=== PATIENT | male | born 1955 | race Caucasian/White ===

== ENCOUNTER → 2018-03-17 13:21 | Outpatient (CLI) | payer OTHER, SELFPAY ==
--- NOTE | 2018-03-17 13:30 | RAD_ITS ---
STUDY: X-RAY - RIGHT RADIUS AND ULNA REASON FOR EXAM: Male, 62 years old. Swelling. TECHNIQUE: 3 view(s) of the forearm. COMPARISON: None. FINDINGS: There is no demonstrated soft tissue swelling. Normal visualized radius. Normal visualized ulna. RAD/Forearm 2 Views IMPRESSION: Within normal limits x-ray examination of the radius and ulna. Electronically Signed: Stacia Mcqueen MD at 20:37 EDT Tel , Service support ,
== END ==
PROVIDERS: Family Provider Family Medicine; PCP Family Medicine; Visit Provider Family Medicine
DX: M79.631 Pain in right forearm (principal); M25.421 Effusion, right elbow
CPT/HCPCS: 73090

== ENCOUNTER 2019-12-15 10:43 | Emergency (ER) | payer OTHER, SELFPAY ==
[2019-12-15 10:44] VITALS: BP 144/81; PULSE 69; RESP 18; TEMP 36.5; O2SAT 98; BMI 33.0
--- NOTE | 2019-12-15 11:04 | EKG12_ITS ---
Test Reason : CP Blood Pressure : / mmHG Vent. Rate : 068 BPM Atrial Rate : 068 BPM P-R Int : 186 ms QRS Dur : 148 ms QT Int : 428 ms P-R-T Axes : 034 -10 100 degrees QTc Int : 455 ms Normal sinus rhythm Left bundle branch block Abnormal ECG Confirmed by JAVI PHILLIP, AURELIO ([id number]), commissioning editor ANA CARABALLO ([id number] on 12/17/2019 1:32:35 PM Referred By: JEAN Confirmed By:AURELIO CALDWELL MD
--- NOTE | 2019-12-15 11:04 | ED.DCSUM_ITS ---
- ER Visit Summary Date of Service: 12/15/19 Chief Complaint: Chest pain History of Present Illness: The patient is a 64 M who presents with chest pain and shortness of breath that began approximately 40 minutes prior to arrival. 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 Patient states this was a tightness across his chest. Patient states he had some shortness of breath with this. Patient also admits to some episodes of palpitations. Patient states he did break out into a sweat. Patient states his symptoms are improved with drinking water and with rest. Patient states his breathing was worse because he was wearing a mask. Patient denies any nausea or vomiting. Patient denies any lightheadedness. Patient denies any cough or fevers. Cardiac risk factors include hypertension and hypercholesterolemia. Patient states his symptoms are improving and he thinks he just overdid it at work. Physical Examination: Vital signs are stable. Patient is afebrile. Patient is in no acute distress. Oral mucosa is pink and moist. Neck is supple. Trachea is midline. There is no JVD noted. Heart was regular rate and rhythm. Lungs are clear and equal bilaterally. Abdomen is soft. Bowel sounds are normal. There is no tenderness. There is no rebound or guarding noted. Skin is warm dry. Cranial nerves II through XII are intact. There are no focal motor or sensory deficits noted. Extremities are intact. There is no calf tenderness or edema. Test Results: EKG shows normal sinus rhythm with a rate of 68. There is a left bundle branch block pattern noted. This is new compared to previous EKG dated 05/08/2012. CBC and basic metabolic profile were obtained and were essentially within normal limits. Troponin was normal. Since his symptoms began 40 minutes prior to arrival, a delta troponin was obtained and was normal. Portable chest x-ray was obtained. There is no acute cardiopulmonary process. Emergency Department Course and Treatment: Patient was given aspirin. Patient was ordered sublingual nitroglycerin but did not receive any because he was not having any chest pain at the time. Patient remained pain-free here in the [facility] department. Patient wants to go home. Patient was instructed to follow- up with his primary care physician in 3 to 5 days. Patient understood and was agreeable with the plan. All questions were answered. Disposition: Discharge home Impression: Chest pain of uncertain etiology This note was generated with Dragon dictation software. It may contain incorrect words, spelling, and punctuation that were not noted in review of the chart prior to signing ED Disposition - Plan for ED Patient: Disposition: Home or Assisted Living Diagnosis: Chest pain of uncertain etiology Instructions: CHEST PAIN, Uncertain Cause (Child) Referrals: Basil Arellano DO [Primary Care Provider] - 3-5 Days
[2019-12-15 11:15] LABS: Absolute Neutrophil Count 4.5 X10^3/uL (2.0-7.7); Basophil# 0.04 X10^3/uL; Basophil% 0.5 % (0-1); Eosinophil# 0.15 X10^3/uL; Eosinophils% 2.1 % (0-5); Hematocrit 45.7 % (40-54); Hemoglobin 15.6 g/dL (13.0-16.5); Mean Corp Hgb Conc 34.1 g/dL (32-36); Mean Corpuscular Hgb 31.3 pg (27.0-32.0); Mean Corpuscular Volume 91.8 fL (80-94); Mean Platelet Vol. 9.1 fl (6.2-12.0); Monocyte# 0.64 X10^3/uL; Monocyte% 8.8 % (0-10); NRBC Flagged by Analyzer 0 % (0-5); Neutrophil # 4.53 X10^3/uL (2.7-7.7); Neutrophil % 62.1 % (47-70); Platelet Count 404 K/mm3 (150-450); RBC Distribution Width CV 11.8 % (11.6-14.6); RBC Distribution Width SD 39.5 fl (35.1-43.9); Red Blood Count 4.98 M/mm3 (4.6-6.2); White Blood Count 7.3 K/mm3 (4.4-11.0)
--- NOTE | 2019-12-15 11:25 | RAD_ITS ---
STUDY: X-RAY CHEST REASON FOR EXAM: Male, 64 years old. Chest pain with exertion TECHNIQUE: Single AP portable view of the chest. COMPARISON: Comparison is made with prior examination of July 20, 2016. FINDINGS: EKG electrodes are seen. The lungs are clear and expanded. Scattered calcified granulomas. There is no demonstrated pleural abnormality. Normal size heart. Normal mediastinum and nestor. Normal visualized pulmonary arteries. There is atherosclerotic calcification of the aortic arch with tortuosity. There are degenerative changes of the visualized thoracic spine. Minimal dextroscoliosis. Normal visualized ribs, clavicles, and shoulders. There is no demonstrated abnormality of the visualized soft tissue structures of the upper abdomen. RAD/Chest 1 View (Portable) IMPRESSION: No acute abnormality is seen. Electronically Signed: Timi Lopez, at 12:18 EDT , Service support ,
[2019-12-15 11:30] LABS: Anion Gap 8 (5-15); BUN 19 mg/dL (7-18); BUN/Creat Ratio 21.9 RATIO (10-20); Calcium,Total 9.4 mg/dL (8.5-10.1); Chloride 105 mmol/L (98-107); Creatinine, Serum 0.87 mg/dL (0.70-1.30); EST Glomerular Filtration Rate 94 mL/min (>60); Est Glom Filt Rate - Afr Amer 113 mL/min (>60); Estimated Creatinine Clearance 90.16 ml/min; Glucose 173 mg/dL (74-106); Potassium 3.9 mmol/L (3.5-5.1); Sodium Level 141 mmol/L (136-145)
[2019-12-15] MEDS: Aspirin 81 MG TAB.CHEW 324 MG PO (11:52)
[2019-12-15 11:53] VITALS: BP 141/79; PULSE 78; RESP 14; O2SAT 98
[2019-12-15 12:00] VITALS: BP 141/65; PULSE 68; RESP 13; O2SAT 96
[2019-12-15 13:09] VITALS: BP 148/75; PULSE 65; RESP 16; O2SAT 99
[2019-12-15 14:00] VITALS: BP 147/81; PULSE 66; RESP 18; O2SAT 97
[2019-12-15 14:48] VITALS: BP 146/75; PULSE 70; RESP 18; TEMP 36.8; O2SAT 98
== END 2019-12-15 14:49 | disposition home or self-care (01) ==
PROVIDERS: Emergency Provider Emergency Medicine; PCP Family Medicine
DX: R07.9 Chest pain, unspecified (principal); I48.91 Unspecified atrial fibrillation; I10 Essential (primary) hypertension; E78.00 Pure hypercholesterolemia, unspecified; K21.9 Gastro-esophageal reflux disease without esophagitis; Z79.01 Long term (current) use of anticoagulants
CPT/HCPCS: 71045; 80048; 84484; 85025; 93005; 99285; A4216

== ENCOUNTER 2020-09-22 18:15 | Emergency (ER) | payer OTHER, SELFPAY ==
[2020-09-22 18:16] VITALS: BP 155/80; PULSE 76; RESP 16; TEMP 36.4; O2SAT 98; BMI 30.7
--- NOTE | 2020-09-22 18:39 | ED.VIS.GEN ---
History of Present Illness Chief Complaint: Back Narrative: Patient is a 65-year-old male with a past medical history of A. elsa on Eliquis, borderline diabetic, hypertension who presents to the emergency department for low back pain. It is on the left side mostly. It does not radiate. He does have a history of chronic back problems in the past. He denies any specific injury. No radiation down his legs or into his abdomen. Denies any urinary symptoms. Does have a history of prostate issues but denies any hematuria. No chest pain. He did get short of breath whenever the pain became significant but denies this now. It is exacerbated by certain movements. While at rest he states his symptoms are very well controlled. He did not try taking anything for it. Previous back surgery was only for lipoma removal. Past Medical History - Allergies and Home Meds Allergies/Adverse Reactions: Allergies atorvastatin calcium [From Lipitor] Adverse Reaction (Verified 09/22/20 18:18) Other pravastatin sodium [From Pravachol] Adverse Reaction (Verified 09/22/20 18:18) Other Primary Care Physician: Basil Arellano DO [Primary Care Provider] - 3-5 Days if not improving Prior records reviewed: Yes Smoking Status: Never smoker Review of Systems All systems negative except as indicated General: Denies: Chills, Fever, Sweats Eyes: Denies: Visual changes - bilaterally, Diplopia ENT: Denies: Rhinorrhea, Sore throat Cardiovascular: Denies: Chest pain, Palpitations Respiratory: Denies: Dyspnea, Cough, Dyspnea on exertion Gastrointestinal: Denies: Abdominal pain, Nausea, Vomiting Genitourinary: Denies: Dysuria, Hematuria, Frequency Musculoskeletal: Reports: Back pain. Denies: Neck pain, Extremity Pain Skin: Denies: Rash, Wounds Neurological: Denies: Headache, Weakness, Numbness Physical Exam Vital Signs/Narrative: Vital Signs Temp Pulse Resp BP Pulse Ox 09/22/20 18:16 97.5 F L 76 16 155/80 H 98 Inital Vital Signs reviewed: Yes General: Well nourished, Well developed, No Acute Distress Head: Normocephalic, Atraumatic Eyes: Perrl, EOMI ENT: Moist mucous membranes, No rhinorrhea Neck: Supple, Nontender Cardiovascular: Regular rate, Regular rhythm, No murmurs Respiratory: No distress, CTA bilaterally, Chest nontender Abdomen: Soft, Nontender, Nondistended Back: Normal Inspection, - - Mild tenderness to the left lumbar paraspinal musculature.. Negative for: Spinal tenderness Extremities: Nontender, No edema, - - 5 out of 5 muscle strength of lower extremities, neurovascularly intact. Skin: Normal color, No rash Neurological: Alert, Oriented x3, Normal Strength, Normal Sensation Psychological: Normal affect, Normal Mood Diagnostic/Tx/Re-eval - Medical Decision Making Patient presents to the ED for nontraumatic left low back pain. Upon arrival to the ED is mildly hypertensive otherwise normal vital signs. He is in no acute distress. His symptoms are actually very well controlled at this time. Benign physical exam. No red flag symptoms for acute surgical spinal emergency. This does not appear to be an aortic dissection as the symptoms are well controlled, neurovascular intact and symptoms are worse with movement. I do not believe he has a kidney stone at this time as it does not radiate around to the front and is worse with movement. He is agreeable to trialing symptomatic treatment at this time. We will give a dose of Toradol. We will write a prescription for Naprosyn which she is to take sparingly being on a blood thinner. He is to only take this as needed. Will also write a prescription for Flexeril to take as needed. He understands that this can make him tired and should not operate machinery while using it. States he does have the next 3 days off to rest. He can use heating pads as well. He is to follow-up with his PCP. Strict return precautions were discussed with him including any worsening pain, developing any systemic symptoms are reviewed. He understands and agreeable with plan. Discharged home in stable condition. All questions answered. ED Disposition - Plan for ED Patient: Disposition: Home or Assisted Living Diagnosis: Low back pain Instructions: ED Back Pain (Acute or Chronic) Prescriptions: cycloBENZAPRine HCl [Flexeril] 10 mg PO TID PRN 3 Days #9 tab PRN Reason: Muscle Spasm Transmission Status: Received by [facility] cycloBENZAPRine HCl [Flexeril] 10 mg PO TID PRN #9 tab PRN Reason: Muscle Spasm Prescription Printed Naproxen [Naprosyn] 500 mg PO BID PRN #14 tab PRN Reason: Pain/Inflammation Transmission Status: Received by [facility] Naproxen [Naprosyn] 500 mg PO BID PRN #14 tab PRN Reason: Pain/Inflammation Prescription Printed Referrals: Basil Arellano DO [Primary Care Provider] - 3-5 Days if not improving
[2020-09-22] MEDS: Ketorolac 30 MG/ML Syringe IM (18:44)
[2020-09-22 19:13] VITALS: RESP 17
== END 2020-09-22 19:13 | disposition home or self-care (01) ==
LOC: ED 18:46
PROVIDERS: Emergency Provider Emergency Medicine; PCP Family Medicine
DX: M54.5 Low back pain (principal); I48.91 Unspecified atrial fibrillation; I10 Essential (primary) hypertension; Z79.01 Long term (current) use of anticoagulants
CPT/HCPCS: 99282

== ENCOUNTER 2021-03-01 10:00 | Emergency (ER) | payer OTHER, SELFPAY ==
[2021-03-01 10:00] VITALS: BP 167/68; PULSE 70; RESP 16; TEMP 36.4; O2SAT 97; BMI 33.5
--- NOTE | 2021-03-01 10:05 | ED.RN ---
DR. MALDONADO INFORMED OF PT SX ON TRIAGE, REPORTS THAT LKW OVER 24 HOURS. NO STROKE ALERT AT THIS TIME.
--- NOTE | 2021-03-01 10:18 | CT_ITS ---
STUDY: CTA HEAD AND NECK WITH CONTRAST REASON FOR EXAM: Male, 65 years old. Decrease vision right eye. Blurred vision in the right eye since last night. 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 RADIATION DOSAGE (If Supplied By Facility): CTDIvol = ( 29.89 ) mGy, DLP = ( 1654.31 ) mGycm TECHNIQUE: CT angiography was performed with a multi-detector CT scanner. Data acquisition was obtained from the skull base through the vertex following intravenous administration of 100mL Isovue 370. MIP images were reconstructed from the axial data set. Post-processing of the angiographic images was performed, with multiplanar reformation and 3D reconstruction. Individualized dose optimization techniques were used for this CT. COMPARISON: No relevant priors. FINDINGS: Normal bilateral petrous carotid arteries. Normal right cavernous carotid artery with a normal supraclinoid bifurcation. Normal left cavernous carotid artery with a normal supraclinoid bifurcation. Normal right A1 segments of the anterior cerebral artery. Normal left A1 segments of the anterior cerebral artery. Normal intact anterior communicating artery (ACOM). Normal bilateral A2 segments of the anterior cerebral arteries. Normal right M1 and M2 segments of the middle cerebral arteries, with a normal M1 bifurcation. Normal left M1 and M2 segments of the middle cerebral arteries, with a normal M1 bifurcation. Normal right posterior communicating artery (PCOM). Normal left posterior communicating artery (PCOM). Normal bilateral vertebral arteries. Normal basilar artery with a normal basilar bifurcation. The visualized bilateral superior cerebellar (SCA) arteries are normal. Normal bilateral P1, P2 and visualized P3 segments of the posterior cerebral arteries. There is no demonstrated aneurysm of the false pass of [place]. There is no demonstrated abnormality of the visualized brain. There is a 1.1 cm x 0.7 cm hypodense nodule in the left lobe of the thyroid. AORTIC ARCH: There is atherosclerotic calcific plaque formation of the aortic arch and great vessels arising from the aortic arch, without a hemodynamically significant stenosis. There is a normal origin of the brachiocephalic, left common carotid, and left subclavian arteries. Small benign appearing mediastinal lymph nodes. RIGHT CAROTID ARTERIES: Normal right common carotid artery (CCA). Normal right common carotid bulb. Normal origin of the right internal carotid (ICA) artery without a hemodynamically significant stenosis. Normal visualized cervical portion of the right internal carotid artery. Normal origin of the right external carotid artery (ECA). LEFT CAROTID ARTERIES: Normal left common carotid artery (CCA). Normal left common carotid bulb. Normal origin of the left internal carotid (ICA) artery without a hemodynamically significant stenosis. Normal visualized cervical portion of the left internal carotid artery. Normal origin of the left external carotid artery (ECA). VERTEBRAL ARTERIES: Normal bilateral vertebral arteries. CT/CTA Head AND Neck W/ Contrast IMPRESSION: Normal CTA Head and neck with contrast. Electronically Signed: Timi Lopez MD at 11:48 EDT , Service support ,
--- NOTE | 2021-03-01 10:20 | EDS_ITS ---
HPI History of Present Illness Chief Complaint: Eye Problem Detail of Chief Complaint: Blurred vision and double vision to right eye Informant: patient Onset/Context/Timing Onset: Yesterday Narrative Narrative: Patient presents to the emergency department with decreased vision in the right eye that started yesterday evening when he woke up around 6 PM. Patient went to bed at 8 AM and was normal at that time. Patient states that years ago he had a central vein occlusion of the left eye and has very poor vision in left eye. He is currently on Eliquis for history of A. fib. He denies chest pain or shortness of breath. He denies headache. He denies falls or head injuries. Denies recent illness. Prior similar symptoms: No PFSH PFSH Medical History (Updated 03/01/21 @ 12:[address] Tarik Regalado DO) A-fib Enlarged prostate GERD (gastroesophageal reflux disease) Sleep apnea Home Medications apixaban 5 mg PO BID 12/15/19 [History Last Taken Unknown] fluticasone furoate 2 spray NARES DAILY PRN PRN 12/15/19 [History Last Taken Unknown] metoprolol succinate 25 mg PO BID 12/15/19 [History Last Taken Unknown] omeprazole 20 mg PO DAILY 12/15/19 [History Last Taken Unknown] Allergy/AdvReac Type Severity Reaction Status Date / Time atorvastatin calcium AdvReac Other Verified 03/01/21 10:00 [From Lipitor] pravastatin sodium AdvReac Other Verified 03/01/21 10:00 [From Pravachol] Surgical History (Updated 03/01/21 @ 10:51 by Irlanda Marti) History of hernia repair History of repair of right hip joint Social History Smoking Status: Former smoker ROS ROS ED Constitutional Constitutional ED: Reports systems reviewed and no addt'l complaints, except as documented; Denies body ache(s), change in weight or chills Eyes Eyes: Reports blurry vision right, change in vision right and diplopia ENT ENT ED: Reports none; Denies ear pain, lip swelling, loss taste/smell, neck pain, otalgia or sore throat Cardiovascular Cardiovascular: Reports none; Denies abdominal pain, chest pain with activity, leg edema, lightheadedness, palpitations, rapid heart rate or syncope Respiratory/Chest Respiratory/Chest: Reports none; Denies change in mental status, dry cough, dy spnea, hemoptysis, shortness of breath at rest or shortness of breath with exertion Gastrointestinal Gastrointestinal: Reports none; Denies abdominal pain, change in stool character, diarrhea, hematemesis, hematochezia, melena, rectal bleeding or vomiting Genitourinary Genitourinary ED: Reports none; Denies abdominal discomfort, anuria, dysuria, genital pain or polyuria Musculoskeletal Musculoskeletal: Reports none; Denies arthralgias, back pain, difficulty walking, extremity pain, muscle weakness or myalgias Integumentary Reports none; Denies abscess or rash Neurologic Neurologic: Reports none; Denies abnormal gait, confusion, focal weakness, frequent falls, headache(s), loss of vision, numbness, paresthesias, radicular pain, vertigo or weakness Psychiatric Psychiatric: Reports systems reviewed and no addt'l complaints, except as documented and none; Denies behavioral changes, confusion, difficulty concentrating, hallucinations, suicidal ideation, tactile hallucinations or visual hallucinations Endocrine Endocrinology: Denies none, cold intolerance, excessive sweating, fatigue or heat intolerance Hematologic/Lymphatic Hematologic/Lymphatic: Reports none; Denies anemia, easy bleeding or easy bruising Allergic/Immunologic Allergic/Immunologic ED: Denies as per HPI, none, lip swelling, mouth swelling, throat swelling, tongue swelling or hives EXAM Physical Exam Const Vital Signs: 03/01/21 10:00 Temperature 97.6 F L Temperature Source Temporal Pulse Rate 70 Respiratory Rate 16 Blood Pressure 167/68 H Blood Pressure Mean 101 Pulse Ox 97 Oxygen Delivery Method Room Air Positive well nourished and well developed General Appearance ED: well developed and NAD HEENT Reports TM's clear and moist mucous membranes normocephalic and atraumatic; Negative for trauma or tenderness Tympanic Membrane ED: Yes TM's clear Eyes PERRL and EOMs intact bilaterally General Eye ED: Negative for pale conjunctiva or scleral icterus Direct Ophthalmoscopy: normal light reflex, anterior chamber normal and other Other Detail: Exam difficult in the department. I do not see significant retinal hemorrhages. Neck no lymphadenopathy, supple and no JVD General: Negative for tenderness Chest Wall inspection of chest normal and palpation of chest normal Chest: Negative for tenderness Resp normal respiratory effort and clear to auscultation bilaterally Effort and Inspection: Negative for respiratory distress or pain with movement Auscultation: Negative for rhonchi, wheezes or diminished lung sounds Cardio regular rate, regular rhythm, S1 normal heart sound, S2 normal heart sound and no murmurs Peripheral Pulses: pulses 2+ throughout GI normal to inspection, nondistended, normoactive bowel sounds, soft to palpation, non-tender, non-distended and no masses Back/Spine no CVA tenderness and no thoracic nor lumbar tenderness Extremity normal to inspection General Extremety ED: Negative for edema General Extremity: Negative for edema Neuro oriented x3, CN's II-XII intact bilaterally, no sensory deficits noted and gait normal Sensorium / Orientation: awake, alert, oriented to person, oriented to place and oriented to time Motor Exam: strength 5/5 throughout and strength abnormal Psych mental status grossly normal Skin no rashes or lesions noted and no wounds MDM MDM MDM Narrative Medical decision making narrative: CTA of head and neck unremarkable. Lab work was unremarkable. I discussed case with ophthalmology on-call Dr. Quiñonez who would be happy to see patient tomorrow. 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 Patient will attempt to contact his harvesting supervisor to be seen tomorrow if not he can follow-up with Dr. Quiñonez here locally. Dr. Quiñonez did not feel like there was emergent need to be evaluated today. Lab Data Attestation: I reviewed the patient's lab results. Discharge Plan Triage Chief Complaint: Eye Problem ED Provider: Tarik Regalado Dx/Rx/DC Orders Clinical Impression: Blurred vision Instructions: ED Blurred Vision Prescriptions: No Action omeprazole 20 MG capsule,delayed release(DR/EC) 20 mg PO DAILY RF: 0 metoprolol succinate 25 MG tablet extended release 24 hr 25 mg PO BID RF: 0 fluticasone furoate 5.9 ML spray,suspension 2 spray NARES DAILY PRN PRN (Reason: Congestion) RF: 0 apixaban 5 MG tablet 5 mg PO BID RF: 0 Primary Care Provider: Basil Arellano Referrals: Basil Arellano DO [Primary Care Provider] - Lianet Quiñonez MD [STAFF PHYSICIAN] - 1 Day Disposition Disposition: Home, self care
[2021-03-01 10:46] VITALS: RESP 17
[2021-03-01 11:01] LABS: Absolute Lymphocyte Count 2.85 X10^3/uL (0.83-4.51); Absolute Neutrophil Count 5.4 X10^3/uL (2.0-7.7); Basophil# 0.05 X10^3/uL; Basophil% 0.5 % (0-1); Eosinophil# 0.24 X10^3/uL; Eosinophils% 2.5 % (0-5); Hematocrit 44.2 % (40-54); Hemoglobin 15.4 g/dL (13.0-16.5); Lymphocyte # 2.85 X10^3/ul (0.83-4.51); Lymphocyte % 29.8 % (19-41); Mean Corp Hgb Conc 34.8 g/dL (32-36); Mean Corpuscular Hgb 31.6 pg (27.0-32.0); Mean Corpuscular Volume 90.6 fL (80-94); Mean Platelet Vol. 9.2 fl (6.2-12.0); Monocyte# 0.96 X10^3/uL; NRBC Flagged by Analyzer 0 % (0-5); Neutrophil # 5.42 X10^3/uL (2.7-7.7); Neutrophil % 56.7 % (47-70); Platelet Count 361 K/mm3 (150-450); RBC Distribution Width CV 11.9 % (11.6-14.6); RBC Distribution Width SD 39.5 fl (35.1-43.9); Red Blood Count 4.88 M/mm3 (4.6-6.2); White Blood Count 9.6 K/mm3 (4.4-11.0)
[2021-03-01 11:07] VITALS: BP 169/91; PULSE 72; RESP 16; O2SAT 94
[2021-03-01 11:13] LABS: Anion Gap 7 (5-15); BUN 19 mg/dL (7-18); BUN/Creat Ratio 24.5 RATIO (10-20); Calcium,Total 9.1 mg/dL (8.5-10.1); Chloride 107 mmol/L (98-107); Creatinine, Serum 0.78 mg/dL (0.70-1.30); EST Glomerular Filtration Rate 106 mL/min (>60); Est Glom Filt Rate - Afr Amer 128 mL/min (>60); Estimated Creatinine Clearance 75.03 ml/min; Glucose 112 mg/dL (74-106); Potassium 3.6 mmol/L (3.5-5.1); Sodium Level 140 mmol/L (136-145)
[2021-03-01 12:00] VITALS: BP 168/79; PULSE 71; RESP 17; O2SAT 97
[2021-03-01 13:35] VITALS: BP 158/74; PULSE 78; RESP 16; O2SAT 98
== END 2021-03-01 13:35 | disposition home or self-care (01) ==
PROVIDERS: Emergency Provider Emergency Medicine; PCP Family Medicine
DX: H53.8 Other visual disturbances (principal); K21.9 Gastro-esophageal reflux disease without esophagitis; G47.30 Sleep apnea, unspecified; I48.91 Unspecified atrial fibrillation; Z79.899 Other long term (current) drug therapy; Z87.891 Personal history of nicotine dependence
CPT/HCPCS: 70496; 70498; 80048; 85025; 99284; Q9967; A4216

== ENCOUNTER 2022-06-21 05:50 | Emergency (ER) | payer OTHER, SELFPAY ==
[2022-06-21 05:51] VITALS: BP 158/73; PULSE 68; RESP 18; TEMP 35.8; O2SAT 98; BMI 34.2
--- NOTE | 2022-06-21 06:01 | RAD_ITS ---
STUDY: X-RAY CHEST REASON FOR EXAM: Male, 67 years old. Shortness of breath TECHNIQUE: PA and lateral views of the chest. COMPARISON: 12/15/2019 FINDINGS: The lungs are clear and expanded. There is no demonstrated pleural abnormality. Normal size heart. Normal mediastinum and nestor. Normal visualized pulmonary arteries. Normal visualized aortic arch and descending thoracic aorta. There is no demonstrated abnormality of the visualized soft tissue structures of the upper abdomen. RAD/Chest PA and Lateral IMPRESSION: No acute abnormal cardiopulmonary finding. Electronically Signed: Enrike Cortez MD at 6:59 EDT ,
--- NOTE | 2022-06-21 06:01 | EKG12_ITS ---
Test Reason : Blood Pressure : / mmHG Vent. Rate : 061 BPM Atrial Rate : 061 BPM P-R Int : 198 ms QRS Dur : 154 ms QT Int : 454 ms P-R-T Axes : 036 002 110 degrees QTc Int : 457 ms Normal sinus rhythm Left bundle branch block Abnormal ECG Confirmed by JAVI PHILLIP, AURELIO ([id number]), desk editor VICKY JARAMILLO ([id number]) on 06/22/2022 10:10:25 AM Referred By: DOMONIQUE Confirmed By:AURELIO CALDWELL MD
--- NOTE | 2022-06-21 06:02 | ED.VIS.DYS ---
HPI History of Present Illness Chief Complaint: Shortness of Breath Informant: patient Onset/Context/Timing Onset: Weeks (1) Context: gradual and onset Timing: Continuous Quality: Positive for - (Feels like I cannot catch my breath) Current Severity: Mild Maximum Severity: Moderate Worsened by: Exertion (And light activities) and - (Bending over) Relieved by: Rest Associated Symptoms Negative for cough Chest Pain: Positive for None Narrative Narrative: Patient states she has felt dyspneic for the past week. Seems to be worse with bending over and with light activities. No orthopnea. No chest pain. No cough or fevers/chills. Today he was at work, and with light activity/walking, he felt near syncopal multiple times. He states if he stops and focused on his breathing it took a couple of deep breaths, that would keep me from passing out. This is the first day he had that happen. He was feeling some occasional skipping palpitations with that, but no palpitations otherwise. He states he has a history of paroxysmal atrial fibrillation and would feel whenever he would go into it, and has not noticed that recently. He is on Xarelto, switched from Eliquis 1 or 2 months ago. He has been compliant with his medication. No other recent medication changes. No other known heart problems. No recent long travel, leg pain or swelling, prior DVT or PE, recent hospitalization or surgery. [facility] Medical History A-fib Enlarged prostate GERD (gastroesophageal reflux disease) Hyperlipidemia Hypertension Sleep apnea Home Medications fluticasone furoate 27.5 mcg/actuation nasal spray,suspension 2 spray NARES DAILY PRN PRN Congestion 12/15/19 [History Last Taken Unknown] metoprolol succinate 25 mg tablet,extended release 24 hr 25 mg PO BID 12/15/19 [History Last Taken Unknown] omeprazole 20 mg capsule,delayed release 20 mg PO DAILY 12/15/19 [History Last Taken Unknown] rivaroxaban 20 mg tablet (Xarelto) 20 mg PO DAILY 03/20/22 [History Last Taken Unknown] rosuvastatin 5 mg tablet 5 mg PO DAILY 03/20/22 [History Last Taken Unknown] silodosin 4 mg capsule 4 mg PO DAILY 03/20/22 [History Last Taken Unknown] albuterol sulfate 90 mcg/actuation aerosol inhaler (Ventolin HFA) 1 - 2 puff inhalation Q4H PRN PRN Wheezing ##1 06/21/22 [Rx Last Taken Unknown] prednisone 20 mg tablet 40 mg PO DAILY #10 TABLETS 06/21/22 [Rx Last Taken Unknown] Allergy/AdvReac Type Severity Reaction Status Date / Time atorvastatin calcium AdvReac Other Verified 06/21/22 05:54 [From Lipitor] pravastatin sodium AdvReac Other Verified 06/21/22 05:54 [From Pravachol] Family History (Updated 03/20/22 @ 16:05 by Yudelka Castillo) Other Arthritis Cancer Diabetes Surgical History History of hernia repair History of repair of right hip joint Social History Smoking Status: Former smoker alcohol intake: never ROS ROS ED Constitutional Constitutional ED: Denies chills or fever(s) Eyes Eyes: Denies change in vision or diplopia ENT ENT ED: Denies rhinorrhea or sore throat Cardiovascular Cardiovascular: Reports palpitations; Denies chest pain, leg edema, orthopnea or racing heartbeat Respiratory/Chest Respiratory/Chest: Reports dyspnea; Denies cough or orthopnea Gastrointestinal Gastrointestinal: Reports other Details: Early satiety recently ; Denies abdominal pain, diarrhea, nausea or vomiting Genitourinary Genitourinary ED: Denies dysuria or hematuria Musculoskeletal Musculoskeletal: Denies back pain or neck pain Integumentary Denies abscess or rash Neurologic Neurologic: Denies headache(s), paresthesias or weakness Psychiatric Psychiatric: Denies anxiety or suicidal thoughts EXAM Physical Exam Const Vital Signs: 06/21/22 05:51 06/21/22 06:00 06/21/22 06:15 Temperature 96.5 F L Temperature Source Temporal Pulse Rate 68 65 Pulse Rate [Lying] Pulse Rate [Sitting (for 1 minute prior to obtaining)] Pulse Rate [Standing (for 1 minute prior to obtaining)] Respiratory Rate 18 17 Respiratory Effort Normal Respiratory Pattern Normal Blood Pressure 158/73 H Blood Pressure [Lying] Blood Pressure [Sitting (for 1 minute prior to obtaining)] Blood Pressure [Standing (for 1 minute prior to obtaining)] Blood Pressure Mean 101 Blood Pressure Mean [Lying] Blood Pressure Mean [Sitting (for 1 minute prior to obtaining)] Blood Pressure Mean [Standing (for 1 minute prior to obtaining)] Pulse Ox 98 Oxygen Delivery Method Room Air 06/21/22 07:03 Temperature Temperature Source Pulse Rate Pulse Rate [Lying] 65 Pulse Rate [Sitting (for 1 minute prior to obtaining)] 64 Pulse Rate [Standing (for 1 minute prior to obtaining)] 68 Respiratory Rate Respiratory Effort Respiratory Pattern Blood Pressure Blood Pressure [Lying] 138/75 H Blood Pressure [Sitting (for 1 minute prior to obtaining)] 147/73 H Blood Pressure [Standing (for 1 minute prior to obtaining)] 196/82 H Blood Pressure Mean Blood Pressure Mean [Lying] 96 Blood Pressure Mean [Sitting (for 1 minute prior to obtaining)] 97 Blood Pressure Mean [Standing (for 1 minute prior to obtaining)] 120 Pulse Ox Oxygen Delivery Method Positive well nourished and well developed General Appearance ED: well developed and NAD HEENT Reports moist mucous membranes normocephalic and atraumatic Eyes PERRL and EOMs intact bilaterally Neck full ROM, no lymphadenopathy, supple and no JVD Resp normal respiratory effort and clear to auscultation bilaterally Cardio regular rate, regular rhythm and no murmurs Cardio Narrative: Occasional irregularity coinciding with occasional PVC on monitor Rate: Negative for tachycardic GI non-tender and non-distended Auscultation: normoactive bowel sounds Palpation: soft Back/Spine no CVA tenderness General Back: other FROM Extremity normal to inspection General Extremety ED: Negative for edema, pulses abnormal or tenderness General Extremity: Negative for edema or pulses abnormal Neuro oriented x3, CN's II-XII intact bilaterally and no sensory deficits noted Sensorium / Orientation: awake and alert Motor Exam: strength 5/5 throughout Psych mental status grossly normal Skin no rashes or lesions noted and no wounds MDM MDM MDM Narrative Medical decision making narrative: Cardiopulmonary work-up obtained, but since he is anticoagulated and has excellent pulse oximetry at 98% on room air without tachycardia, although he is on metoprolol to help this, I do not think we need to evaluate him for pulmonary embolus. He has no specific risk for that nor history of DVT or PE, nor clinical signs of a DVT acutely. Chest x-ray is unremarkable, EKG is stable showing a left bundle branch block, no acute injury pattern and his troponin is negative, BNP well within normal limits, and normal blood counts and renal function/electrolytes. While working him up empirically given albuterol treatment to see if that helped his symptoms. He states it did. Initially he stated he was not having any chest discomfort, but afterwards he states he must of been having some mild tightness because it is gone now and he feels improved dyspnea. We did orthostatics, they are negative. Therefore I had staff take him for a walk around the department with pulse oximetry, he was asymptomatic, no dyspnea, chest discomfort, lightheadedness or near syncope, and he maintained excellent pulse oximetry on room air. I am going to treat him like this is reactive airway. He does not have a known history of asthma. Prescribed albuterol inhaler and a short course of prednisone, he is comfortable with that plan. Close outpatient follow-up advised. Lab Data Attestation: I reviewed the patient's lab results. Labs: Laboratory Results - last 24 hr 06/21/22 06/21/22 06/21/22 05:57 05:57 05:57 WBC 8.9 RBC 4.43 L Hgb 14.2 Hct 41.3 MCV 93.2 MCH 32.1 H MCHC 34.4 RDW Std Deviation 39.6 RDW Coeff of Mor 11.7 Plt Count 346 MPV 9.2 Immature Gran % (Auto) 0.300 Neut % (Auto) 54.8 Lymph % (Auto) 32.8 [place] % (Auto) 9.6 Eos % (Auto) 2.1 Baso % (Auto) 0.4 Absolute Neuts (auto) 4.9 Absolute Lymphs (auto) 2.93 Nucleated RBC % 0 Sodium 142 Potassium 3.5 Chloride 109 H Carbon Dioxide 25.0 Anion Gap 8 BUN 12 Creatinine 0.82 Estim Creat Clear Calc 89.02 Est GFR (MDRD) Af Amer 121 Est GFR (MDRD) Non-Af 100 BUN/Creatinine Ratio 14.7 Glucose 159 H Calcium 8.5 Troponin I High Sens 11 B-Natriuretic Peptide 48.2 Radiography Chest X-Ray - ED: 2 View, Read by ED Physician, No Acute Disease and No Infiltrates Diagnostic Testing: Clinical Impression(s) from Imaging Studies Chest X-Ray 06/21/22 06:01 IMPRESSION: No acute abnormal cardiopulmonary finding. Electronically Signed: Enrike Cortez MD at 6:59 EDT , Rhythm Strip Rhythm Strip: Sinus Rhythm Rate: 70 Ectopy: PVC(s) EKG Initial EKG: Attestation: I personally reviewed and interpreted this EKG as follows: Interpretation: Sinus Rhythm, No Acute Injury Pattern and LBBB Prior EKG tracings: available for review Prior: Unchanged Discharge Plan Triage Chief Complaint: Shortness of Breath ED Provider: Fito Montez Dx/Rx/DC Orders Clinical Impression: Dyspnea, Chest tightness, Near syncope, Reactive airway disease Instructions: ED Dyspnea, ED Inhaler Use Prescriptions: New prednisone 20 MG tablet 40 mg PO DAILY Qty: 10 0RF albuterol sulfate [Ventolin HFA] 1 INHALER inhaler 1 - 2 puff inhalation Q4H PRN PRN (Reason: Wheezing) Qty: 1 0RF No Action rosuvastatin 5 mg tablet 5 mg PO DAILY silodosin 4 mg capsule 4 mg PO DAILY Xarelto 20 mg tablet 20 mg PO DAILY omeprazole 20 MG capsule,delayed release(DR/EC) 20 mg PO DAILY metoprolol succinate 25 MG tablet extended release 24 hr 25 mg PO BID fluticasone furoate 5.9 ML spray,suspension 2 spray NARES DAILY PRN PRN (Reason: Congestion) Primary Care Provider: Basil Arellano Referrals: Basil Arellano, DO [Primary Care Provider] - 3-5 Days if not improving Disposition Disposition: Home, Self Care
[2022-06-21 06:11] LABS: Absolute Lymphocyte Count 2.93 X10^3/uL (0.83-4.51); Absolute Neutrophil Count 4.9 X10^3/uL (2.0-7.7); Basophil# 0.04 X10^3/uL; Basophil% 0.4 % (0-1); Eosinophil# 0.19 X10^3/uL; Eosinophils% 2.1 % (0-5); Hematocrit 41.3 % (40-54); Hemoglobin 14.2 g/dL (13.0-16.5); Lymphocyte # 2.93 X10^3/ul (0.83-4.51); Lymphocyte % 32.8 % (19-41); Mean Corp Hgb Conc 34.4 g/dL (32-36); Mean Corpuscular Hgb 32.1 pg (27.0-32.0); Mean Corpuscular Volume 93.2 fL (80-94); Mean Platelet Vol. 9.2 fl (6.2-12.0); Monocyte# 0.86 X10^3/uL; Monocyte% 9.6 % (0-10); NRBC Flagged by Analyzer 0 % (0-5); Neutrophil # 4.88 X10^3/uL (2.7-7.7); Neutrophil % 54.8 % (47-70); Platelet Count 346 K/mm3 (150-450); RBC Distribution Width CV 11.7 % (11.6-14.6); RBC Distribution Width SD 39.6 fl (35.1-43.9); Red Blood Count 4.43 M/mm3 (4.6-6.2); White Blood Count 8.9 K/mm3 (4.4-11.0)
[2022-06-21 06:15] VITALS: PULSE 65; RESP 17
[2022-06-21] MEDS: Albuterol 2.5 MG/3 ML VIAL.NEB. INHALATION (06:15)
[2022-06-21 06:28] LABS: Anion Gap 8 (5-15); BUN 12 mg/dL (7-18); BUN/Creat Ratio 14.7 RATIO (10-20); Calcium,Total 8.5 mg/dL (8.5-10.1); Chloride 109 mmol/L (98-107); Creatinine, Serum 0.82 mg/dL (0.70-1.30); EST Glomerular Filtration Rate 100 mL/min (>60); Est Glom Filt Rate - Afr Amer 121 mL/min (>60); Estimated Creatinine Clearance 89.02 ml/min; Glucose 159 mg/dL (74-106); Potassium 3.5 mmol/L (3.5-5.1); Sodium Level 142 mmol/L (136-145); Troponin-I HS 11 pg/mL (3.0-78.0)
[2022-06-21 07:03] VITALS: BP 138/75; BP 147/73; BP 196/82; PULSE 64; PULSE 65; PULSE 68
[2022-06-21 07:06] LABS: BNP,B-Type NATRIURETIC PEPTIDE 48.2 pg/mL (0-100)
[2022-06-21 07:14] VITALS: O2SAT 97
[2022-06-21 08:02] VITALS: BP 142/78; PULSE 63
== END 2022-06-21 08:02 | disposition home or self-care (01) ==
PROVIDERS: Emergency Provider Emergency Medicine; PCP Family Medicine; Visit Provider Emergency Medicine
DX: R06.00 Dyspnea, unspecified (principal); I48.0 Paroxysmal atrial fibrillation; R07.89 Other chest pain; R55 Syncope and collapse; J45.909 Unspecified asthma, uncomplicated; I10 Essential (primary) hypertension; G47.30 Sleep apnea, unspecified; K21.9 Gastro-esophageal reflux disease without esophagitis; Z79.899 Other long term (current) drug therapy; Z87.891 Personal history of nicotine dependence; Z79.01 Long term (current) use of anticoagulants
CPT/HCPCS: 71046; 80048; 83880; 84484; 85025; 87428; 93005; 94640; 99284

== ENCOUNTER → 2022-07-23 | Outpatient (CLI) | payer OTHER, SELFPAY ==
--- NOTE | 2022-07-23 10:20 | STRESSREP ---
Stress Test Report Pharmacologic myocardial perfusion stress test. 67-year-old man with a history of chest pain. Stress protocol: Resting EKG demonstrates normal sinus rhythm with a left bundle branch block pattern. Resting blood pressure is 142/70 mmHg. The 0.4 mg of regadenoson was infused per usual protocol. Continuous EKG monitoring was performed. The maximum heart rate attained was 86 bpm which was 56% of max impacted heart rate the maximum workload was 1 metabolic equivalent. At rest there were no ST or T wave changes noted to suggest abnormal flow reserve patient maintained a left bundle branch block pattern throughout. Myocardial perfusion protocol. 14.6 mCi of technetium 99m sestamibi was injected at rest. 0.4 mg of regadenoson was infused per usual protocol. At peak infusion 45.0 mCi of technetium 99m sestamibi was injected stress images were obtained stress and rest images were reconstructed in comparing the short axis vertical long horizontal long axis. Gated images were also obtained to Perfusion SPECT analysis: Review of the stress images demonstrate mildly reduced perfusion noted in the anterior septal wall. The other kenyon appear to be completely well perfused. The resting images demonstrate a similar patent. The above is suggestive of the left bundle branch block morphology. No ischemia is noted. Gated SPECT analysis: The gated ejection fraction is 52%. Conclusion: Pharmacologic myocardial perfusion stress test with no evidence of ischemia. Reduced anteroseptal perfusion noted. Low normal ejection fraction.
== END | disposition home or self-care (01) ==
LOC: CVS 06:09
PROVIDERS: PCP Family Medicine; Referring Provider Family Medicine; Visit Provider Family Medicine
DX: R06.00 Dyspnea, unspecified (principal); I44.7 Left bundle-branch block, unspecified; R55 Syncope and collapse
CPT/HCPCS: 78452; 93017; A9500; A4216; J2785

== ENCOUNTER 2023-10-12 22:54 | Emergency (ER) | payer OTHER, SELFPAY ==
[2023-10-12 22:57] VITALS: BP 155/86; PULSE 61; RESP 18; TEMP 35.6; O2SAT 100; BMI 33.1
--- NOTE | 2023-10-12 23:22 | ED.VIS.CHEST ---
HPI History of Present Illness Chief Complaint: Chest Pain Informant: patient and spouse/S.O. Narrative Narrative: Patient presents with episode of chest tightness at home. About an hour ago, patient had an episode where he was sitting watching TV. He had a feeling as though his chest was being squeezed and he was being twisted. He did feel short of breath but no nausea vomiting or diaphoresis. He felt like his vision kind of went valerio a little bit. But he did not pass out. This lasted for a few seconds and then went away. He is back to normal. Patient has been having some more discomfort in the epigastric area over the last 2 or so days. But he contributed this to reflux which he does have. He had made some spicy pork and beans with a lot of spices in it. When he started eating this he started to have those symptoms. He did not have those symptoms with this episode and does not have them now. Patient also states that he and his went to an food place [facility]. After eating, both of them got epigastric discomfort. She had an allergic flush type reaction. This went away with Benadryl and sleep. They do not know if it had MSG. He is not having the epigastric discomfort anymore. Patient does have a history of a small blood vessel he states in his heart that has a blockage. It is not able to be stented due to its small size. He has been on metoprolol rosuvastatin and long-acting nitrates for this. He is also on Xarelto for a history of atrial fibrillation. No recent travel surgery. He is taking his Xarelto appropriately. I was able to bring up a heart catheterization from about 11 years ago that showed minimal right coronary artery disease left circumflex and left anterior descending disease. Normal left main. I also reviewed a pharmacologic stress test from 06/23/2022. It showed no evidence of ischemia but reduced anterior septal perfusion noted. [facility] Medical History A-fib Acute sinusitis, unspecified Contact with and (suspected) exposure to other viral communicable diseases Enlarged prostate GERD (gastroesophageal reflux disease) Hyperlipidemia Hypertension Sleep apnea Home Medications fluticasone furoate 27.5 mcg/actuation nasal spray,suspension 2 spray NARES DAILY PRN PRN Congestion 12/15/19 [History Last Taken Unknown] metoprolol succinate 25 mg tablet,extended release 24 hr 50 mg PO DAILY 12/15/19 [History Last Taken Unknown] omeprazole 20 mg capsule,delayed release 20 mg PO DAILY 12/15/19 [History Last Taken Unknown] rivaroxaban 20 mg tablet (Xarelto) 20 mg PO DAILY 03/20/22 [History Last Taken Unknown] rosuvastatin 5 mg tablet 20 mg PO DAILY 03/20/22 [History Last Taken Unknown] aspirin 81 mg tablet,delayed release (Adult Aspirin Regimen) 81 mg PO DAILY 10/12/23 [History Last Taken Unknown] isosorbide mononitrate 60 mg tablet,extended release 24 hr 60 mg PO DAILY 10/12/23 [History Last Taken Unknown] Allergy/AdvReac Type Severity Reaction Status Date / Time atorvastatin calcium AdvReac Other Verified 10/12/23 22:57 [From Lipitor] pravastatin sodium AdvReac Other Verified 10/12/23 22:57 [From Pravachol] Family History Other Arthritis Cancer Diabetes Surgical History History of hernia repair History of repair of right hip joint Social History Smoking Status: Former smoker alcohol intake: never ROS ROS ED Constitutional Constitutional ED: Denies chills, fever(s) or sweats Eyes Eyes: Reports change in vision and other Details: Patient felt as though his vision grayed out during this episode. He states he has had these graying out episodes in the past but it has been a while. ENT ENT ED: Denies rhinorrhea or sore throat Cardiovascular Cardiovascular: Reports as per HPI Respiratory/Chest Respiratory/Chest: Denies cough Gastrointestinal Gastrointestinal: Denies nausea or vomiting Musculoskeletal Musculoskeletal: Denies back pain, myalgias or neck pain Integumentary Denies rash Neurologic Neurologic: Denies headache(s) or paresthesias Endocrine Endocrinology: Denies polydipsia or polyuria Hematologic/Lymphatic Hematologic/Lymphatic: Reports easy bleeding and easy bruising Allergic/Immunologic Allergic/Immunologic ED: Denies urticaria EXAM Physical Exam Narrative Exam Narrative: CONSTITUTIONAL: Patient is nontoxic in appearance. The patient looks comfortable. Work of breathing looks normal. HEENT: No notable trauma. Mucous membranes moist. No intraoral lesions. EYES: No conjunctival injection. No proptosis. NECK:No JVD. No stridor. CARDIOVASCULAR: Regular rate. Regular rhythm. No notable murmur. No JVD. Monitor appears to show a normal sinus rhythm with a rate about 60. No ectopy. No sign of A-fib on exam or monitor at this time. RESPIRATORY: No respiratory distress. Breathing is unlabored. No wheezes. No rhonchi. No rales. No pain with a deep breath. No chest wall tenderness. GASTROINTESTINAL: Not distended. Bowel sounds are normal. No tenderness. GENITOURINARY: No CVA tenderness. MUSCULOSKELETAL: Atraumatic. No peripheral edema. No cord. No tenderness along the deep venous system. No asymmetry. No distended veins. NEUROLOGICAL: Patient is alert and appropriate. No focal deficit noted. SKIN: No noted rashes. No diaphoresis or signs of recent diaphoresis.. PSYCHIATRIC: Patient is calm. Mood is appropriate. Const Vital Signs: 10/12/23 22:57 10/12/23 23:30 10/12/23 23:33 Temperature 96.1 F L Temperature Source Temporal Pulse Rate 61 Respiratory Rate 18 Respiratory Effort Normal Non-Labored Respiratory Pattern Blood Pressure 155/86 H Blood Pressure Mean 109 Pulse Ox 100 Oxygen Delivery Method Room Air Room Air 10/12/23 23:33 10/13/23 00:00 10/13/23 01:00 Temperature Temperature Source Pulse Rate 60 54 L Respiratory Rate 18 15 Respiratory Effort Normal Non-Labored Respiratory Pattern Normal Blood Pressure 142/72 H 139/69 H Blood Pressure Mean 95 92 Pulse Ox 95 95 Oxygen Delivery Method Room Air Room Air 10/13/23 02:00 Temperature Temperature Source Pulse Rate 58 L Respiratory Rate 15 Respiratory Effort Respiratory Pattern Blood Pressure 144/79 H Blood Pressure Mean 100 Pulse Ox 97 Oxygen Delivery Method Room Air MDM MDM MDM Narrative Medical decision making narrative: CBC is overall normal. Patient's electrolytes are normal other than minimal elevation of chloride at 110. His glucose is also slightly up at 141 but this can be followed. His first troponin is normal at 10. Patient's repeat troponin is still normal at 11 and has not had a significant rise. Patient is asymptomatic here. I have not seen any dysrhythmias on the monitor. The patient and his had been thinking about this. Both of them had a lot of symptoms that after eating at a [employer] restaurant. We were wondering if they may have been having reaction to MSG. Plan will be follow-up with his engineering document control clerk, Dr. Milian, in [place]. Lab Data Attestation: I reviewed the patient's lab results. Labs: Laboratory Results - last 24 hr 10/12/23 10/13/23 23:30 01:28 WBC 7.4 RBC 4.54 L Hgb 14.3 Hct 41.6 MCV 91.6 MCH 31.5 MCHC 34.4 RDW Std Deviation 40.1 RDW Coeff of Mor 11.9 Plt Count 333 MPV 9.3 Immature Gran % (Auto) 0.500 Neut % (Auto) 52.5 Lymph % (Auto) 33.2 [place] % (Auto) 10.3 H Eos % (Auto) 2.8 Baso % (Auto) 0.7 Absolute Neuts (auto) 3.9 Absolute Lymphs (auto) 2.45 Nucleated RBC % 0 Sodium 140 Potassium 3.9 Chloride 110 H Carbon Dioxide 27.0 Anion Gap 3 L BUN 15 Creatinine 0.74 Estim Creat Clear Calc 105.63 Est GFR (MDRD) Af Amer 134 Est GFR (MDRD) Non-Af 111 BUN/Creatinine Ratio 20.2 H Glucose 141 H Calcium 8.9 Troponin I High Sens 10 11 Radiography Diagnostic Testing: Clinical Impression(s) from Imaging Studies Chest X-Ray 10/12/23 23:40 IMPRESSION: No acute findings in the chest. Electronically Signed: Ramrio Richards MD at 0:35 EST , EKG Initial EKG: Comments: My independent interpretation of the patient's EKG shows sinus rhythm with slight first-degree AV block and mild bradycardia. He is on metoprolol. No ventricular ectopy. He does have left bundle branch block. No convincing evidence of acute ST elevation and negative scar Bosa criteria. Patient's MD interval and QRS duration are slightly prolonged but QTc is overall normal. This EKG is similar to 21 June 2022. Discharge Plan Triage Chief Complaint: Chest Pain Other Complaint: Syncope ED Provider: Guillaume Vizcaino Dx/Rx/DC Orders Clinical Impression: Chest tightness Instructions: ED Chest Pain, Uncertain Cause Prescriptions: No Action rosuvastatin 5 mg tablet 20 mg PO DAILY Xarelto 20 mg tablet 20 mg PO DAILY omeprazole 20 MG capsule,delayed release(DR/EC) 20 mg PO DAILY metoprolol succinate 25 MG tablet extended release 24 hr 50 mg PO DAILY fluticasone furoate 5.9 ML spray,suspension 2 spray NARES DAILY PRN PRN (Reason: Congestion) isosorbide mononitrate 60 mg tablet extended release 24 hr 60 mg PO DAILY aspirin [Adult Aspirin Regimen] 81 mg tablet,delayed release (DR/EC) 81 mg PO DAILY Primary Care Provider: Basil Arellano Referrals: Basil Arellano, [Primary Care Provider] - As Needed Activity Restrictions/Additional Instructions: Follow-up with Dr. Milian, your engineering document control clerk in [place]. Disposition Disposition: Home, Self Care
--- NOTE | 2023-10-12 23:40 | RAD_ITS ---
EXAM: XR CHEST, 1 VIEW CLINICAL INDICATION: chest pain TECHNIQUE: Frontal view of the chest. COMPARISON: June 21, 2022 FINDINGS: LUNGS AND PLEURAL SPACES: Unremarkable. No consolidation or edema. No pneumothorax. No effusion. HEART: Unremarkable. Cardiac silhouette not enlarged. MEDIASTINUM: Central airways and mediastinal contour are unremarkable. BONES/JOINTS: Unremarkable. No acute fracture. SOFT TISSUES: Unremarkable. VASCULATURE: Atherosclerotic calcifications of the nonenlarged thoracic aortic arch. RAD/Chest 1 View (Portable) IMPRESSION: No acute findings in the chest. Electronically Signed: Ramiro Richards MD at 0:35 EST ,
[2023-10-12 23:57] LABS: Anion Gap 3 (5-15); BUN 15 mg/dL (7-18); BUN/Creat Ratio 20.2 RATIO (10-20); Calcium,Total 8.9 mg/dL (8.5-10.1); Chloride 110 mmol/L (98-107); Creatinine, Serum 0.74 mg/dL (0.70-1.30); EST Glomerular Filtration Rate 111 mL/min (>60); Est Glom Filt Rate - Afr Amer 134 mL/min (>60); Estimated Creatinine Clearance 105.63 ml/min; Glucose 141 mg/dL (74-106); Potassium 3.9 mmol/L (3.5-5.1); Sodium Level 140 mmol/L (136-145); Troponin-I HS (w/2H Reflex) 10 pg/mL (3.0-78.0)
[2023-10-12 23:58] LABS: Absolute Lymphocyte Count 2.45 X10^3/uL (0.83-4.51); Absolute Neutrophil Count 3.9 X10^3/uL (2.0-7.7); Basophil# 0.05 X10^3/uL; Basophil% 0.7 % (0-1); Eosinophil# 0.21 X10^3/uL; Eosinophils% 2.8 % (0-5); Hematocrit 41.6 % (40-54); Hemoglobin 14.3 g/dL (13.0-16.5); Lymphocyte # 2.45 X10^3/ul (0.83-4.51); Lymphocyte % 33.2 % (19-41); Mean Corp Hgb Conc 34.4 g/dL (32-36); Mean Corpuscular Hgb 31.5 pg (27.0-32.0); Mean Corpuscular Volume 91.6 fL (80-94); Mean Platelet Vol. 9.3 fl (6.2-12.0); Monocyte# 0.76 X10^3/uL; Monocyte% 10.3 % (0-10); NRBC Flagged by Analyzer 0 % (0-5); Neutrophil # 3.87 X10^3/uL (2.7-7.7); Neutrophil % 52.5 % (47-70); Platelet Count 333 K/mm3 (150-450); RBC Distribution Width CV 11.9 % (11.6-14.6); RBC Distribution Width SD 40.1 fl (35.1-43.9); Red Blood Count 4.54 M/mm3 (4.6-6.2); White Blood Count 7.4 K/mm3 (4.4-11.0)
[2023-10-13] VITALS: BP 142/72; PULSE 60; RESP 18; O2SAT 95
--- OUTSIDE RECORDS SUMMARY | 2023-10-13 00:15 | XMS RPT_ITS | CCD ---
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 Role Phone Katy, Basil Attending Unavailable PROVIDER, UNKNOWN Referring Unavailable Katy, Basil Primary Care Unavailable PfefferleNegro Attending Unavailable PROVIDER, UNKNOWN Referring Unavailable Katy, Basil Primary Care Unavailable PfefferleKrisel Attending Unavailable PROVIDER, UNKNOWN Referring Unavailable Akty, Basil Primary Care Unavailable Katy DO, Basil Primary Care Provider RAMIRO FERREIRA Admitting Unavailable RAMIRO FERREIRA Attending Unavailable KATY, BASIL Primary Care Unavailable JONES WATSON Attending Unavailable KATY, BASIL Primary Care Unavailable MICHI MILIAN Attending Unavailable KATY, BASIL Primary Care Unavailable KATY, BASIL Attending Unavailable KATY, BASIL Referring Unavailable KATY, BASIL Primary Care Unavailable CHRIS NUR Attending Unavailable KATY, BASIL Primary Care Unavailable MICHI MILIAN Attending Unavailable KATY, BASIL Referring Unavailable KATY, BASIL Primary Care Unavailable MICHI MILIAN Attending Unavailable SANDI MILIANSON Referring Unavailable KATY, BASIL Primary Care Unavailable KATY, BASIL Attending Unavailable KATY, BASIL Referring Unavailable KATY, BASIL Primary Care Unavailable Allergies Allergy Classification Reported Allergen(s) Allergy Type Date of Onset Reaction(s) Facility (10 sources) atorvastatin Drug Allergy 06-19-2016 [facility] (10 sources) Pravastatin Drug Allergy 06-19-2016 [facility] (10 sources) Simvastatin Propensity to adverse reactions 07-12-2016 [facility] Medications Current Medications Medication Drug Class(es) Dates Sig (Normalized) Sig (Original) [id number] 200 actuat albuterol 0.09 mg/actuat metered dose inhaler (10 sources) beta2-Adrenergic Agonist Start: 12-04-2016 albuterol 108 (90 Base) MCG/ACT inhaler ascorbic acid 500 mg chewable tablet (6 sources) Vitamin C ascorbic acid (Vitamin C) 500 MG tablet Every 24 hours. 0 Active aspirin 81 mg chewable tablet (12 sources) Platelet Aggregation Inhibitor, Nonsteroidal Anti-inflammatory Drug Start: 03-14-2023 End: 03-13-2023 aspirin chewable tablet 81 mg Completed/Discontinued Medications Medication Drug Class(es) Dates Sig (Normalized) Sig (Original) Flax oil (6 sources) End: 05-15-2023 take 800 mg by mouth once daily Flax oil Take 800 mg by mouth daily. 0 05/15/2023 Discontinued Problems Problem Classification Problem Date Documented Date Episodic/Chronic Acute cerebrovascular disease (10 sources) Cerebrovascular accident; Translations: [Cerebral infarction, unspecified] Onset: 07-12-2016 07-07-2022 Chronic Cardiac dysrhythmias (20 sources) Atrial fibrillation; Translations: [Unspecified atrial fibrillation] Onset: 07-12-2016 07-07-2022 Chronic Coronary atherosclerosis and other heart disease (16 sources) Coronary arteriosclerosis; Translations: [Atherosclerotic heart disease of pamunkey coronary artery with other forms of angina pectoris] Onset: 03-08-2023 03-08-2023 Chronic Diabetes mellitus without complication (2 sources) Type 2 diabetes mellitus without complications; Translations: [Type 2 diabetes mellitus without complications (HCC)] Onset: 09-11-2023 Chronic Disorders of lipid metabolism (2 sources) Hyperlipidemia, unspecified; Translations: [Hyperlipidemia, unspecified] Onset: 09-11-2023 Chronic Essential hypertension (12 sources) Hypertensive disorder; Translations: [Essential (primary) hypertension] Onset: 07-12-2016 07-07-2022 Chronic Hyperplasia of prostate (2 sources) Benign prostatic hyperplasia without lower urinary tract symptoms; Translations: [Benign prostatic hyperplasia without lower urinary tract symptoms] Onset: 09-11-2023 Chronic Osteoarthritis (2 sources) Bilateral primary osteoarthritis of hip; Translations: [Bilateral primary osteoarthritis of hip] Onset: 07-23-2018 Chronic Other nervous system disorders (2 sources) Other chronic pain; Translations: [Other chronic pain] Onset: 09-10-2018 Chronic Other non-traumatic joint disorders (2 sources) Pain in right hip; Translations: [Pain in right hip] Onset: 09-10-2018 Episodic Other nutritional; endocrine; and metabolic disorders (1 source) Body mass index 30+ - obesity; Translations: [Obesity, unspecified] 05-07-2023 Chronic Other nutritional; endocrine; and metabolic disorders (2 sources) Other obesity due to excess calories; Translations: [Other obesity due to excess calories] Onset: 11-05-2022 Chronic Other nutritional; endocrine; and metabolic disorders (2 sources) Body mass index (BMI) 33.0-33.9, adult; Translations: [Body mass index (BMI) 33.0-33.9, adult] Onset: 11-05-2022 Chronic Other skin disorders (3 sources) Disorder of right lower extremity; Translations: [Localized swelling, mass and lump, right lower limb] Onset: 09-02-2023 09-02-2023 Episodic Other skin disorders (1 source) Localized swelling, mass and lump, right lower limb; Translations: [Localized swelling, mass and lump, right lower limb] Onset: 09-02-2023 Episodic Residual codes; unclassified (11 sources) Obstructive sleep apnea syndrome; Translations: [Obstructive sleep apnea (adult) (pediatric)] Onset: 11-05-2022 11-05-2022 Chronic Residual codes; unclassified (2 sources) Sleep apnea; Translations: [Sleep Apnea] Onset: 05-07-2023 Chronic Residual codes; unclassified (2 sources) Obstructive sleep apnea (adult) (pediatric); Translations: [Obstructive sleep apnea (adult) (pediatric)] Onset: 11-05-2022 Chronic Sprains and strains (2 sources) Other sprain of right hip, initial encounter; Translations: [Other sprain of right hip, initial encounter] Onset: 09-10-2018 Episodic Unclassified (2 sources) 6 Month Follow-up; Translations: [6 Month Follow-up] Onset: 05-07-2023 Results Test Name Value Interpretation Reference Range Facil ity Vital Signs Date Time Vital Sign Value Performing Clinician Faci lity 05-15-2023 09:35-0400 Body mass index (BMI) [Ratio] 32.8 kg/m2 Michi Milian MD Work Phone: [facility] [employer] 05-15-2023 09:35-0400 Body weight 103.69 kg Michi Milian MD Work Phone: [facility] [facility] 05-15-2023 09:35-0400 Diastolic blood pressure 80 mm[Hg] Michi Milian MD Work Phone: [facility] [facility] 05-15-2023 09:35-0400 Heart rate 76 /min Michi Milian MD Work Phone: [facility] [facility] 05-15-2023 09:35-0400 SaO2% (BldA) [Mass fraction] 94 % Michi Milian MD Work Phone: [facility] [facility] 05-15-2023 09:35-0400 Systolic blood pressure 118 mm[Hg] Michi Milian MD Work Phone: [facility] [facility] 05-07-2023 08:28-0400 Body height 177.8 cm Jones Watson APRN Work Phone: [facility] [facility] 05-07-2023 08:28-0400 Body mass index (BMI) [Ratio] 34.09 kg/m2 Jones Watson APRN Work Phone: [facility] [facility] 05-07-2023 08:28-0400 Body temperature 97.7 [degF] Jones Watson APRN Work Phone: [facility] 05-07-2023 08:28-0400 Body weight 107.78 kg Jones Watson APRN Work Phone: [facility] 05-07-2023 08:28-0400 Diastolic blood pressure 75 mm[Hg] Jones Watson APRN Work Phone: [facility] 05-07-2023 08:28-0400 Heart rate 67 /min Jones Watson APRN Work Phone: [facility] 05-07-2023 08:28-0400 SaO2% (BldA) [Mass fraction] 96 % Jones Watson APRN Work Phone: [facility] 05-07-2023 08:28-0400 Systolic blood pressure 158 mm[Hg] Jones Watson TERI Work Phone: [facility] [facility] 03-13-2023 13:00-0400 Diastolic blood pressure 69 mm[Hg] Ramiro Ferreira MD Work Phone: [facility] [facility] 03-13-2023 13:00-0400 Heart rate 53 /min Ramiro Ferreira MD Work Phone: [facility] 03-13-2023 13:00-0400 Respiratory rate 14 /min Ramiro Ferreira MD Work Phone: [facility] 03-13-2023 13:00-0400 SaO2% (BldA) [Mass fraction] 94 % Ramiro Ferreira MD Work Phone: [facility] 03-13-2023 13:00-0400 Systolic blood pressure 136 mm[Hg] Ramiro Ferreira MD Work Phone: [facility] 03-13-2023 10:17-0400 Body temperature 97.9 [degF] Ramiro Ferreira MD Work Phone: [facility] 03-13-2023 06:59-0400 Body height 177.8 cm Ramiro Ferreira MD Work Phone: [facility] 03-13-2023 06:59-0400 Body mass index (BMI) [Ratio] 32.9 kg/m2 Ramiro Ferreira MD Work Phone: [facility] [facility] 03-13-2023 06:59-0400 Body weight 104 kg Ramiro Ferreira MD Work Phone: [facility] Encounters Encounter Date Encounter Type Care Provider Facility Start: 09-11-2023 End: 09-12-[address] [facility] Start: 09-02-2023 End: 09-03-[address] [facility] Start: 09-02-2023 End: 09-02-2023 Subsequent hospital visit by physician Basil Arellano DO Work Phone: [facility] Procedures Date Procedure Procedure Detail Performing Clinician Start: 09-02-2023 Us compl joint r-t w /image documentation Basil Arellano DO Work Phone: Start: 05-15-2023 Follow-up visit Follow-up MICHI DIAZ Start: 03-13-2023 Cardiac catheterizat ion study Chela Kemp [employer] 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 - [employer] Work Phone: Plan of Treatment Date Care Activity Detail Author Start: 11-19-2023 End: 11-19-2023 Patient encounter procedure 11/19/2023 9:30 AM EST Office Visit [facility] Cardiology [address] [place] [address] Jimena Burrell PA [address] [place] [address] [facility] Start: 11-11-2023 End: 11-11-2023 Patient encounter procedure 11/11/2023 9:00 AM EST Office Visit [facility] Pulmonary Medicine [address] [facility] [place] [phone] Chris Nur MD [address] [place] [id number] [facility]monary [facility] Start: 05-24-2023 COVID-19 Vaccine ( season) COVID-19 Vaccine ( season) [facility] Start: 05-24-2023 Influenza vaccination Influenza Vacc ine (#1) [facility] Start: 05-15-2023 End: 05-15-2023 Patient encounter procedure 05/15/2023 9:45 AM EDT Office Visit [facility] Cardiology [address] [place] [address] Michi Milian MD [address] [phone] [facility] Start: 05-07-2023 End: 05-07-2023 Patient encounter procedure 05/07/2023 8:40 AM EDT Office Visit [facility] Internal Medicine [address] [place] [phone] Jones Watson APRN [address] [place] [phone] [facility] Internal Medicine Start: 03-13-2023 End: 03-13-2023 Admission to same day surgery center 03/13/2023 8:00 AM EDT - 03/13/2023 9:00 AM EDT Surgery [facility] [address] [place] [phone] Ramiro Ferreira MD [address] [place] [address] Left heart cath / coronary angiography [facility] Immunizations Immunization Date Immunization Notes Care Provider Fa cility 07-02-2022 influenza virus vacc ine, unspecified formulation Jones Watson APRN Work Phone: [facility] Payers Date Payer Category Payer Unknown 2021 Unknown [id number] 2019 Medicare MEDICARE MEDICAR E PART A ONLY [id number] 2019-Present [address] [place] [address] Medicare [id number] 1955 Unknown [id number] 1955 Unknown [id number] 1955 Unknown [id number] Social History Date Type Detail Facility Tobacco smoking status NHIS Ex-smoker [facility] History of tobacco use Current smoker [facility] Start: 03-05-2023 End: 05-15-2023 Alcohol intake Current non-drinker of alcohol (finding) [facility] Start: 03-05-2023 End: 05-15-2023 History of Social function [facility] Start: 03-05-2023 End: 05-15-2023 Tobacco use panel [facility] Start: 1955 Sex Assigned At Not on file [facility] Start: 02-23-2023 End: 05-15-2023 Exposure to SARS-CoV-2 (event) Not sure [facility] Within the last year , have you been afraid of your partner or ex-partner? No [facility] Clinical Notes 03-08-2023 to 06-11-2023 Telephone Encounter - Barbara Hargrove RN - 06/11/2023 2:01 PM EDTTelephone Encounter - Barbara Hargrove RN - 06/11/2023 2:01 PM EDTTelephone Encounter - Barbara Hargrove RN - 05/15/2023 10:17 AM EDT Note Date & Type Note Facility 06-11-2023 Telephone encount er Note OV 04/2023 [facility] 06-11-2023 Miscellaneous Notes Formattin g of this note might be different from the original. OV 04/2023 documented in this encounter [facility] 05-15-2023 Telephone encount er Note OV today forgot to mention a refill Imdur [facility] 05-15-2023 Miscellaneous Notes Formattin g of this note might be different from the original. OV today forgot to mention a refill Imdur documented in this encounter [facility] 05-15-2023 History of Presen t illness Narrative [facility] Cardiology Note Chief Complaint: Chief Complaint Patient presents with Follow-up History of Present Illness: Sagar Gong is a 68 y.o. male presenting status post cardiac catheterization in the setting of angina and known coronary artery disease. He had significant disease in a very small right coronary and potentially microvascular disease and low flow throughout. Medications were adjusted and he feels great. There is basically no further chest pain with exertion. He has from time to time with very brief palpitation lasting only several seconds. He tells me it is likely his atrial fibrillation is occurring but he simply does not feel it. No side effects of the medication. Past Medical History: Past Medical History: Diagnosis Date BPH (benign prostatic hyperplasia) Central retinal vein occlusion, left eye Dry eye syndrome GERD (gastroesophageal reflux disease) Hyperlipidemia Hypertension ARGELIA (obstructive sleep apnea) compliant with CPAP Paroxysmal atrial fibrillation (CMS/HCC) (HCC) CHADsV 3 - (HTN, CVA) Stroke (HCC) Past Surgical History Past Surgical History: Procedure Laterality Date CARDIAC CATHETERIZATION N/A 03/13/2023 Performed by Ramiro Ferreira MD at [facility] Cardiac Cath/EP Lab CARDIAC PROCEDURE 04/2012 CYST REMOVAL EYE SURGERY Left HERNIA REPAIR Family History Family History Problem Relation Name Age of Onset Other (65348) Mother heart murmur Cancer Father Emphysema Mother Social History Social History Tobacco Use Smoking status: Former Smokeless tobacco: Never Substance Use Topics Alcohol use: No Drug use: No Comment: caffeine: decaff coffee and pepsi occasionally Allergies: Allergies Allergen Reactions Atorvastatin Pravastatin Simvastatin Arms shaking Medications: Current Outpatient Medications: albuterol 108 (90 Base) MCG/ACT inhaler, , Disp: , Rfl: ascorbic acid (Vitamin C) 500 MG tablet, Every 24 hours., Disp: , Rfl: aspirin 81 MG EC tablet, Take 81 mg by mouth daily., Disp: , Rfl: B Complex Vitamins (vitamin B complex) tablet, as directed Orally, Disp: , Rfl: cholecalciferol (Vitamin D-3) 50 MCG (2000 UT) capsule, Take 5,000 Units by mouth daily., Disp: , Rfl: fluticasone (Flonase) 50 MCG/ACT nasal spray, Administer 1 spray into each nostril See administration instructions. prn, Disp: , Rfl: glucosamine-chondroitin 500-400 MG tablet, Take 1 tablet by mouth daily., Disp: , Rfl: isosorbide mononitrate ER (Imdur) 60 MG 24 hr tablet, Take 1 tablet (60 mg) by mouth daily. Do not crush or chew., Disp: 90 tablet, Rfl: 1 loratadine (Claritin) 10 MG tablet, Take 10 mg by mouth Daily as needed., Disp: , Rfl: Magnesium 300 MG capsule, See administration instructions. Once or twice a week, Disp: , Rfl: metoprolol succinate XL (Toprol-XL) 25 MG 24 hr tablet, Take 50 mg by mouth daily., Disp: , Rfl: omega-3 (Fish Oil) 1000 MG capsule, Take 800 mg by mouth daily., Disp: , Rfl: omeprazole (PriLOSEC) [address] capsule, Take 20 mg by mouth in the morning., Disp: , Rfl: rivaroxaban (Xarelto) 20 MG tablet, Take 20 mg by mouth daily., Disp: , Rfl: rosuvastatin (Crestor) 20 MG tablet, Take 1 tablet (20 mg) by mouth daily., Disp: 90 tablet, Rfl: 1 Turmeric 500 MG tablet, Take by mouth daily., Disp: , Rfl: Ubiquinol (Qunol CoQ10/Ubiquinol/Alexis) 100 MG capsule, Take by mouth daily., Disp: , Rfl: zinc 50 MG tablet, Take by mouth See administration instructions. occasionally, Disp: , Rfl: Review of Systems: Review of Systems Constitutional: Negative. Negative for activity change, chills, diaphoresis, fatigue and fever. HENT: Negative. Negative for nosebleeds and trouble swallowing. Eyes: Negative. Negative for discharge and visual disturbance. Respiratory: Positive for shortness of breath. Negative for apnea, cough, chest tightness and wheezing. Cardiovascular: Positive for palpitations. Negative for chest pain and leg swelling. Gastrointestinal: Negative. Negative for abdominal distention, abdominal pain, blood in stool, diarrhea, nausea and vomiting. Endocrine: Negative. Negative for cold intolerance and heat intolerance. Genitourinary: Negative. Negative for hematuria. Musculoskeletal: Negative. Negative for gait problem and myalgias. Skin: Negative. Negative for color change and rash. Neurological: Positive for light-headedness. Negative for dizziness, seizures, syncope, facial asymmetry, speech difficulty, weakness, numbness and headaches. Hematological: Negative. Does not bruise/bleed easily. Psychiatric/Behavioral: Negative. Negative for dysphoric mood. Physical Examination: Vitals: Vitals: 05/15/23 0935 BP: 118/80 BP Location: Left arm Patient Position: Sitting BP Cuff Size: Adult Pulse: 76 SpO2: 94% Weight: 228 lb 9.6 oz (104 kg) Body mass index is 32.8 kg/m . Physical Exam Vitals reviewed. Constitutional: Appearance: Normal appearance. HENT: Head: Normocephalic. Right Ear: External ear normal. Left Ear: External ear normal. Nose: Nose normal. Mouth/Throat: Mouth: Mucous membranes are moist. Eyes: Pupils: Pupils are equal, round, and reactive to light. Cardiovascular: Rate and Rhythm: Normal rate and regular rhythm. Heart sounds: No murmur heard. Pulmonary: Breath sounds: No wheezing. Musculoskeletal: General: Normal range of motion. Right lower leg: No edema. Left lower leg: No edema. Skin: General: Skin is warm and dry. Coloration: Skin is not jaundiced. Neurological: General: No focal deficit present. Mental Status: He is alert. Motor: No weakness. Psychiatric: Mood and Affect: Mood normal. Behavior: Behavior normal. Thought Content: Thought content normal. Judgment: Judgment normal. Laboratory Tests: Lab Results Component Value Date WBC 8.9 03/05/2023 HGB 14.6 03/05/2023 HCT 41.4 03/05/2023 MCV 92.4 03/05/2023 PLT 361 03/05/2023 Lab Results Component Value Date GLUCOSE 130 (H) 03/05/2023 CALCIUM 9.1 03/05/2023 NA 139 03/05/2023 K 3.6 03/05/2023 CO2 25 03/05/2023 CL 106 03/05/2023 BUN 20 03/05/2023 CREATININE 0.71 03/05/2023 @LASTCMP@ No results found for: CHLPL, CHOL No results found for: TRIG No results found for: HDL No results found for: LDLCALC Assessment and Plan: Coronary artery disease: Microvascular angina is likely. He will continue his Imdur 60 metoprolol succinate 50 and aspirin 81 mg. He is tolerating his rosuvastatin 20. Atrial fibrillation: Paroxysmal and essentially asymptomatic. We will continue a rate control and anticoagulation strategy with metoprolol succinate 50 with rivaroxaban as his anticoagulant. Hypertension: Under good control on the above regimen. He will follow-up with us in 6 months overall he is doing well documented in this encounter [facility] 05-07-2023 History of Presen t illness Narrative Images from the original note were not included. [facility] Pulmonary Medicine [address] [place] [address] [place] [id number] Date of Service: 05/07/2023 Visit type: An Established patient Chief Complaint/Reason for Referral: 6 Month Follow-up and Sleep Apnea SUBJECTIVE History of Present Illness: Sagar Gong ( 1955) is a 68 y.o. male patient, with significant PMH of BPH, GERD, HLD, HTN, ARGELIA, afib, stroke and former tobacco abuse, being seen for 6 month follow up. Today, patient reports he is feeling well overall. He uses PAP most every night, for the whole night and does feel it helps tremendously. Denies SOB or wheezing. Does have allergies, and takes OTC meds with relief. Patient underwent LHC in February. New LBBB, so had stress test, mildly reduced perfusion. Recommended LHC, and recommended medical management. Patient reports he feels to years younger since the changes in medication have been made. ESS: 07/16 ACT: CAT: MMRC Dyspnea Scale: Grade Description of Breathlessness 0 I only get breathless with strenuous exercise. 1 I get short of breath when hurrying on level ground or walking up a slight hill. 2 On level ground, I walk slower than people of the same age because of breathlessness, or have to stop for breath when walking at my own pace. 3 I stop for breath after walking about 100 yards or after a few minutes on level ground. 4 I am too breathless to leave the house or I am breathless when dressing. OBJECTIVE MEDICAL HISTORY: Past Medical History: Diagnosis Date BPH (benign prostatic hyperplasia) Central retinal vein occlusion, left eye Dry eye syndrome GERD (gastroesophageal reflux disease) Hyperlipidemia Hypertension ARGELIA (obstructive sleep apnea) compliant with CPAP Paroxysmal atrial fibrillation (CMS/HCC) (HCC) CHADsV 3 - (HTN, CVA) Stroke (HCC) SURGICAL HISTORY: Past Surgical History: Procedure Laterality Date CARDIAC CATHETERIZATION N/A 03/13/2023 Performed by Ramiro Ferreira MD at [facility] Cardiac Cath/EP Lab CARDIAC PROCEDURE 04/2012 CYST REMOVAL EYE SURGERY Left HERNIA REPAIR ALLERGIES: Allergies Allergen Reactions Atorvastatin Pravastatin Simvastatin Arms shaking MEDICATIONS: Current Outpatient Medications: albuterol 108 (90 Base) MCG/ACT inhaler, , Disp: , Rfl: ascorbic acid (Vitamin C) 500 MG tablet, Every 24 hours., Disp: , Rfl: aspirin 81 MG EC tablet, Take 81 mg by mouth daily., Disp: , Rfl: B Complex Vitamins (vitamin B complex) tablet, as directed Orally, Disp: , Rfl: cholecalciferol (Vitamin D-3) 50 MCG (2000 UT) capsule, Take 5,000 Units by mouth daily., Disp: , Rfl: Flax oil, Take 800 mg by mouth daily., Disp: , Rfl: fluticasone (Flonase) 50 MCG/ACT nasal spray, Administer 1 spray into each nostril See administration instructions. prn, Disp: , Rfl: glucosamine-chondroitin 500-400 MG tablet, Take 1 tablet by mouth daily., Disp: , Rfl: isosorbide mononitrate ER (Imdur) 60 MG 24 hr tablet, Take 1 tablet (60 mg) by mouth daily. Do not crush or chew., Disp: 90 tablet, Rfl: 1 loratadine (Claritin) 10 MG tablet, Take 10 mg by mouth daily., Disp: , Rfl: Magnesium 300 MG capsule, Every 24 hours., Disp: , Rfl: metoprolol succinate XL (Toprol-XL) 25 MG 24 hr tablet, Take 50 mg by mouth daily., Disp: , Rfl: omega-3 (Fish Oil) 1000 MG capsule, Take 800 mg by mouth daily., Disp: , Rfl: omeprazole (PriLOSEC) [address] capsule, Take 20 mg by mouth in the morning., Disp: , Rfl: rivaroxaban (Xarelto) 20 MG tablet, Take 20 mg by mouth daily., Disp: , Rfl: rosuvastatin (Crestor) 20 MG tablet, Take 1 tablet (20 mg) by mouth daily., Disp: 90 tablet, Rfl: 1 silodosin (Rapaflo) 4 MG capsule, Take 4 mg by mouth daily., Disp: , Rfl: triamcinolone (Kenalog) 0.5 % cream, APPLY 1 APPLICATION TOPICALLY TWICE A DAY FOR 7 DAYS, Disp: , Rfl: Turmeric 500 MG tablet, Take by mouth daily., Disp: , Rfl: Ubiquinol (Qunol CoQ10/Ubiquinol/Alexis) 100 MG capsule, Take by mouth daily., Disp: , Rfl: zinc 50 MG tablet, Take by mouth See administration instructions. occasionally, Disp: , Rfl: SOCIAL HISTORY: Social History Tobacco Use Smoking status: Former Smokeless tobacco: Never Substance Use Topics Alcohol use: No FAMILY HISTORY: Family History Problem Relation Name Age of Onset Other (24844) Mother heart murmur Cancer Father Emphysema Mother REVIEW OF SYSTEMS: Review of Systems Constitutional: Negative for activity change, chills, fatigue and fever. HENT: Positive for congestion. Negative for postnasal drip. Respiratory: Negative for cough, chest tightness, shortness of breath and wheezing. Cardiovascular: Negative for chest pain, palpitations and leg swelling. Allergic/Immunologic: Positive for environmental allergies. Psychiatric/Behavioral: Negative for sleep disturbance. VITAL SIGNS: BP (!) 158/75 Pulse 67 Temp 36.5 C (97.7 F) (Temporal) Ht 5' 10 (1.778 m) Wt 237 lb 9.6 oz (108 kg) SpO2 96% BMI 34.09 kg/m PHYSICAL EXAM: Physical Exam Constitutional: General: He is not in acute distress. Appearance: He is obese. He is not ill-appearing. Cardiovascular: Rate and Rhythm: Normal rate and regular rhythm. Pulses: Normal pulses. Heart sounds: No murmur heard. Pulmonary: Effort: No respiratory distress. Breath sounds: No wheezing, rhonchi or rales. Musculoskeletal: Right lower leg: Edema (trace) present. Left lower leg: Edema (trace) present. Skin: General: Skin is warm and dry. Neurological: Mental Status: He is alert. Psychiatric: Mood and Affect: Mood normal. Behavior: Behavior normal. DATA REVIEWED: PFT's-- CXR-- CT Chest/CTA Chest/CT Lung Screening-- ASSESSMENT and PLAN 1. ARGELIA (obstructive sleep apnea) -patient using PAP nightly, finds significant benefit with use. Recommend continued use -will try to obtain compliance report from [facility] to ensure current settings are appropriate 2. Obesity (BMI 30-39.9) -BMI 34 FOLLOW UP: Follow up in about 6 months (around 11/07/2023), or if symptoms worsen or fail to improve. Jones Watson APRN Pulmonary & Sleep Medicine documented in this encounter [facility] 05-07-2023 Instructions Millicent Hernandez MA - 05/07/2023 8:40 AM EDT YOUR APPOINTMENT TODAY WAS WITH THE [facility] LUNG NODULE CLINIC, COPD CLINIC, PULMONARY AND SLEEP MEDICINE OFFICE. PLEASE CALL OUR OFFICE AT [phone] for our [place] office location or [phone] for our [place] location, IF YOU HAVE NOT RECEIVED YOUR TEST RESULTS 7 DAYS AFTER TESTING IS COMPLETED. PLEASE REMEMBER TO REQUEST REFILLS AT YOUR OFFICE VISITS. PHONE/FAX REQUESTS REQUIRE 48-72 HOURS FOR RESPONSE. A FRIENDLY REMINDER COPAYS ARE DUE AT TIME OF SERVICE. THANK YOU. Our Patients Are Important! We want to improve and you can help. After your visit we want you to feel: Listened to, Respected and have your health care explained. You may receive a survey asking you about your visit. Please complete the survey. We will use your feedback to make improvements. COVID-19 VACCINATION INFORMATION: PH. [phone] [email or web address] [facility] Central Scheduling [phone] [facility] Sleep Scheduling [phone] documented in this encounter [facility] 03-13-2023 Note Received Cardiac Thais ab Phase II Referral and reviewed chart. Patient does not qualify for outpatient phase 2 cardiac rehab exercise program at this time. [facility] 03-13-2023 Consult note Associated Order (s): IP CONSULT TO CARDIAC REHAB; IP CONSULT TO CARDIAC REHAB Received Cardiac Rehab Phase II Referral and reviewed chart. Patient does not qualify for outpatient phase 2 cardiac rehab exercise program at this time. [facility] 03-13-2023 Consult note Associated Order (s): IP CONSULT TO CARDIAC REHAB; IP CONSULT TO CARDIAC REHAB Received Cardiac Rehab Phase II Referral and reviewed chart. Patient does not qualify for outpatient phase 2 cardiac rehab exercise program at this time. documented in this encounter [facility] 03-13-2023 Hospital Discharg e instructions Daniela Carvajal, 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 - STICK WELDER - 03/13/2023 10:31 AM EDT Call your doctor with any medication questions or if you notice any side effects from your medications. If you are unable to fill your medications, please call your Bandsaw Operator immediately. The office number is located with your follow-up appointment information. Call your doctor if any redness or drainage from the wound site. DO NOT stop taking your medication unless instructed to do so by your doctor. Read the drug information material that were given to you and take medications as instructed by your doctor. New drugs may have been added to your medications, that will strengthen your heart and prevent re-stenosis of the coronary arteries. Drink 6 glasses of water (8 ounces each) over the next 24 hours. Water helps clear the dye from your body. No alcoholic beverages for 24 hours. It may interfere with healing. No exercise or sex for 5 days. Call 911 for chest pain, arm pain, nausea, neck pain, dizziness or unusual sweating AND your pain has not relieved with 2 doses of Nitroglycerin. Call your doctor if a lump at the puncture site enlarges or is larger than marble size. Call your doctor for numbness, tingling, or swelling of the fingers, hand or wrist. Call your doctor for increased area or bruising with discoloration extending into the arm. If bleeding occurs, hold pressure with your thumb against the puncture site and your finger against the back of the wrist for 10 minutes, if BLEEDING continues CALL 911. OK to shower. No tub baths, swimming pools or hot tub soaking for three days. Wash site daily with soap and water, dry gently. The healing wound should remain soft and dry. Keep site clean and dry, no soaking of wrist for three days (no cleaning or dish washing). Remove band aid the day after procedure and leave open to air. No bending of affected wrist for 24 hours. DO NOT lift more than three pounds for 3-5 days. No driving for 24 hours. PLEASE CALL YOUR HEART DOCTOR IF YOU CANNOT GET YOUR MEDICATIONS. THE NUMBER IS LISTED WITH YOUR FOLLOW-UP APPOINTMENT. Procedure Sedation Instructions If you have received sedation: you must have someone drive you home You should not drive a car, operate machinery, drink alcohol or perform any activity that requires alertness for the rest of the day. The effects of the sedative should be gone by tomorrow. documented in this encounter [facility] 03-13-2023 Note Formatting of this n ote might be different from the original. Sedation Plan ASA class 3 - patient with severe systemic disease Mallampati class: III - soft palate, base of uvula visible. Sedation plan: moderate (conscious sedation) Risks, benefits, and alternatives discussed with patient and spouse. Use of blood products discussed with patient who. Immediate reassessment prior to sedation: Patient's status reviewed and vital signs assessed; acceptable to perform procedure and proceed to administer sedation as planned. [facility] Phone: 03-13-2023 Note Formatting of this n ote might be different from the original. Sedation Plan ASA class 3 - patient with severe systemic disease Mallampati class: III - soft palate, base of uvula visible. Sedation plan: moderate (conscious sedation) Risks, benefits, and alternatives discussed with patient and spouse. Use of blood products discussed with patient who. Immediate reassessment prior to sedation: Patient's status reviewed and vital signs assessed; acceptable to perform procedure and proceed to administer sedation as planned. [place] Phone: 03-13-2023 Miscellaneous Notes Formattin g of this note might be different from the original. Sedation Plan ASA class 3 - patient with severe systemic disease Mallampati class: III - soft palate, base of uvula visible. Sedation plan: moderate (conscious sedation) Risks, benefits, and alternatives discussed with patient and spouse. Use of blood products discussed with patient who. Immediate reassessment prior to sedation: Patient's status reviewed and vital signs assessed; acceptable to perform procedure and proceed to administer sedation as planned. documented in this encounter [facility] 03-08-2023 Note Attestation signed by Ramiro Ferreira MD at 03/13/2023 9:31 AM 03/13/2023 Addendum: I reviewed the attached note. I have interviewed the patient again today, who states there have been no interval changes. Will proceed with the plan as discussed in the note above. Ramiro Ferreira MD, [facility] Visual Manager [facility], [facility] Cardiovascular [place] [id number] p [phone] f [phone] [email or web address] ADDENDUM: Pt scheduled for LHC with Dr. Ferreira on 03/13/23 at 8:00AM. No contrast allergy noted. GFR>60. Coronary Appropriate Use Criteria Coronary Presentation (select one): Worsening Angina History of CABG (select one): No Diabetes (select one): No Anginal Classification (CCS) within 2 weeks (select one): CCS III - Symptoms with everyday living activities, i.e. moderate limitation Anti-anginal Meds within 2 weeks (select all that apply): Yes: Beta Blockers, Aspirin, and Statin (Any) Stress or Imaging studies performed (select one), risk/extent of ischemia (select one if applicable): Yes, Intermediate Patient undergoing renal transplant or percutaneous valve procedure (select one): No [facility] Classificaton : I Frailty Score :3 [place] Protocol: No H+ P copied to chart from Dr. Milian's progress note dated 03/05/[address] Ferreira. Michi Milian MD (Physician) Cardiology Expand All Collapse All [facility] Cardiology Note Chief Complaint: Chief Complaint Patient presents with New Patient History of Present Illness: Sagar Gong is a 67 y.o. male 3 pleasant gentleman with history of hypertension hyperlipidemia and mild coronary artery disease by catheterization in 2011 presenting for evaluation of potential microvascular angina. He underwent stress testing in the setting of a new left bundle branch block. This demonstrated mildly reduced perfusion in the anteroseptal wall but no other abnormalities and a low normal ejection fraction. He was started on Imdur in addition to low-dose beta-adriana that he had been on for paroxysmal atrial fibrillation. The Imdur has helped with his symptomatology tremendously. He still has chest pressure on occasion but is not as bad. Symptoms of dyspnea on exertion were present with walking upstairs and centrally located chest pressure without radiation was often accompanying this. There is no diaphoresis or radiation. Symptoms are still present but less so. 10 years or so ago he had been troubled by intermittent lightheadedness. He was placed on an alpha-adriana which she then discontinued and things improved. He is now back on alpha-adriana and the symptoms have returned. He has not lost consciousness these occur when he is standing and has stopped his alpha-adriana on his own accord and the lightheadedness has improved dramatically. These lightheaded episodes are worse with stress. Outside records available for review. The stress test was pharmacologic dated 07/23/2022. It was in June of last year that the symptoms had gradually worsened to the point of him seeking medical care. 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 ECG today demonstrates sinus rhythm with a left bundle branch block and PVC. Past Medical History: Medical History Past Medical History: Diagnosis Date BPH (benign prostatic hyperplasia) Central retinal vein occlusion, left eye Dry eye syndrome GERD (gastroesophageal reflux disease) Hyperlipidemia Hypertension ARGELIA (obstructive sleep apnea) compliant with CPAP Paroxysmal atrial fibrillation (CMS/HCC) (HCC) CHADsV 3 - (HTN, CVA) Stroke (HCC) Past Surgical History Surgical History Past Surgical History: Procedure Laterality Date CARDIAC PROCEDURE 04/2012 CYST REMOVAL EYE SURGERY Left HERNIA REPAIR Family History Family History Family History Problem Relation Name Age of Onset Other (10643) Mother heart murmur Cancer Father Emphysema Mother Social History Social History Tobacco Use Smoking status: Former Smokeless tobacco: Never Substance Use Topics Alcohol use: No Drug use: No Comment: caffeine: decaff coffee and pepsi occasionally Allergies: Allergies Allergen Reactions Atorvastatin Pravastatin Simvastatin Arms shaking Medications: Current Outpatient Medications: albuterol 108 (90 Base) MCG/ACT inhaler, , Disp: , Rfl: cholecalciferol (Vitamin D-3) 50 MCG (2000 UT) capsule, Take 5,000 Units by mouth daily., Disp: , Rfl: Flax oil, Take 800 mg by mouth daily., Disp: , Rfl: fluticasone (Flonase) 50 MCG/ACT nasal spray, Administer 1 spray into each nostril See administration instructions. prn, Disp: , Rfl: glucosamine-chondroitin 500-400 MG tablet, Take 1 tablet by mouth daily., Disp: , Rfl: isosorb (more content not included)... [facility] 03-08-2023 Note Attestation signed by Ramiro Ferreira MD at 03/13/2023 9:31 AM 03/13/2023 Addendum: I reviewed the attached note. I have interviewed the patient again today, who states there have been no interval changes. Will proceed with the plan as discussed in the note above. Ramiro Ferreira MD, [facility] Visual Manager [facility], [facility] Cardiovascular [place] [address] [place] [id number] p [phone] [email or web address] ADDENDUM: Pt scheduled for C with Dr. Ferreira on 03/13/23 at 8:00AM. No contrast allergy noted. GFR>60. Coronary Appropriate Use Criteria Coronary Presentation (select one): Worsening Angina History of CABG (select one): No Diabetes (select one): No Anginal Classification (CCS) within 2 weeks (select one): CCS III - Symptoms with everyday living activities, i.e. moderate limitation Anti-anginal Meds within 2 weeks (select all that apply): Yes: Beta Blockers, Aspirin, and Statin (Any) Stress or Imaging studies performed (select one), risk/extent of ischemia (select one if applicable): Yes, Intermediate Patient undergoing renal transplant or percutaneous valve procedure (select one): No [facility] Classificaton : [facility]ilty [facility] :[facility] Protocol: No H+ P copied to chart from Dr. Milian's progress note dated 03/05/[address] Ferreira. Michi Milian MD (Physician) Cardiology Expand All Collapse All [facility] Cardiology Note Chief Complaint: Chief Complaint Patient presents with New Patient History of Present Illness: Sagar oGng is a 67 y.o. male 3 pleasant gentleman with history of hypertension hyperlipidemia and mild coronary artery disease by catheterization in 2011 presenting for evaluation of potential microvascular angina. He underwent stress testing in the setting of a new left bundle branch block. This demonstrated mildly reduced perfusion in the anteroseptal wall but no other abnormalities and a low normal ejection fraction. He was started on Imdur in addition to low-dose beta-adriana that he had been on for paroxysmal atrial fibrillation. The Imdur has helped with his symptomatology tremendously. He still has chest pressure on occasion but is not as bad. Symptoms of dyspnea on exertion were present with walking upstairs and centrally located chest pressure without radiation was often accompanying this. There is no diaphoresis or radiation. Symptoms are still present but less so. 10 years or so ago he had been troubled by intermittent lightheadedness. He was placed on an alpha-adriana which she then discontinued and things improved. He is now back on alpha-adriana and the symptoms have returned. He has not lost consciousness these occur when he is standing and has stopped his alpha-adriana on his own accord and the lightheadedness has improved dramatically. These lightheaded episodes are worse with stress. Outside records available for review. The stress test was pharmacologic dated 07/23/2022. It was in June of last year that the symptoms had gradually worsened to the point of him seeking medical care. 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 ECG today demonstrates sinus rhythm with a left bundle branch block and PVC. Past Medical History: Medical History Past Medical History: Diagnosis Date BPH (benign prostatic hyperplasia) Central retinal vein occlusion, left eye Dry eye syndrome GERD (gastroesophageal reflux disease) Hyperlipidemia Hypertension ARGELIA (obstructive sleep apnea) compliant with CPAP Paroxysmal atrial fibrillation (CMS/HCC) (HCC) CHADsV 3 - (HTN, CVA) Stroke (HCC) Past Surgical History Surgical History Past Surgical History: Procedure Laterality Date CARDIAC PROCEDURE 04/2012 CYST REMOVAL EYE SURGERY Left HERNIA REPAIR Family History Family History Family History Problem Relation Name Age of Onset Other (92882) Mother heart murmur Cancer Father Emphysema Mother Social History Social History Tobacco Use Smoking status: Former Smokeless tobacco: Never Substance Use Topics Alcohol use: No Drug use: No Comment: caffeine: decaff coffee and pepsi occasionally Allergies: Allergies Allergen Reactions Atorvastatin Pravastatin Simvastatin Arms shaking Medications: Current Outpatient Medications: albuterol 108 (90 Base) MCG/ACT inhaler, , Disp: , Rfl: cholecalciferol (Vitamin D-3) 50 MCG (1999 UT) capsule, Take 5,000 Units by mouth daily., Disp: , Rfl: Flax oil, Take 800 mg by mouth daily., Disp: , Rfl: fluticasone (Flonase) 50 MCG/ACT nasal spray, Administer 1 spray into each nostril See administration instructions. prn, Disp: , Rfl: glucosamine-chondroitin 500-400 MG tablet, Take 1 tablet by mouth daily., Disp: , Rfl: isosorb (more content not included)... [facility] 03-08-2023 Note Procedure being done : [facility] Date/time of procedure: 03/13/23 @ 8 am Procedure physician: Dr. Ferreira PRE-PROCEDURE CHECKLIST Completed: CMP, CBC, and EKG Date completed: H&P: 03/05/23 BMP: 03/05/23 CBC: 03/05/23 EK03/05/23 PT INR (if indicated): N/A Urine HCG (if indicated): N/A Last ICD/pacer check (if indicated): N/A ORDERS DAY OF PROCEDURE [x] N/A [] Urine HCG [] POC Glucose [] POC INR [] EKG on arrival [] BMP [] CBC Other: [facility] 03-08-[address] cath or marivel for procedure to be scheduled thanks [facility] Diagnosis Coronary artery disease of pam[place]key heart with stable angina pectoris, unspecified vessel or lesion type (HCC) Coronary artery disease of pam[place]key heart with stable angina pectoris, unspecified vessel or lesion type (HCC) [facility] Diagnosis ARGELIA (obstructive sleep apnea)- Primary Obstructive sleep apnea (adult) (pediatric) Obesity (BMI 30-39.9) [facility]* Diagnosis Atrial fibrillation, unspecified type (HCC)- Primary [facility]* Diagnosis Localized swelling, mass and lump, right lower limb documented in this encounter [facility] Summary Purpose Family History No Family History Records FoundNo Family History Records Found Advance Directives No Advanced Directives Records FoundLatest Code Status on File Code Status Date Activated Date Inactivated Comments Full Code 03/13/2023 6:55 AM 03/13/2023 4:30 PM Latest Code Status on File Code Status Date Activated Date Inactivated Comments Full Code 03/13/2023 6:55 AM 03/13/2023 4:30 PM Additional Source Comments (unrecognized sect ion and content) No Status Records FoundNo Status Records Found INFORMATION SOURCE (unrecogn ized section and content) DATE CREATED AUTHOR AUTHOR'S ORGANIZ ATION 09/15/2023 [facility] Care Teams (unrecognized sec tion and content) Aeronautical Engineer Relationship Specialty Start Date End Date Basil Arellano DO [address] [place] [id number] PCP - General 07/12/16 Aeronautical Engineer Relationship Specialty Start Date End Date Basil Arellano DO [address] [place] [phone] PCP - General 07/12/16 Aeronautical Engineer Relationship Specialty Start Date End Date Basil Arellano DO [address] [place] [address] PCP - General 07/12/16 Aeronautical Engineer Relationship Specialty Start Date End Date Basil Arellano DO [address] [place] [address] PCP - General 07/12/16 Aeronautical Engineer Relationship Specialty Start Date End Date Basil Arellano DO [address] [place] [address] PCP - General 07/12/16 Aeronautical Engineer Relationship Specialty Start Date End Date Basil Arellano DO [address] [place] [address] PCP - General 07/12/16 Reason for Visit (unrecogniz ed section and content) Referral ID Status Reason Start Date Expiration Date Visits Re quested Visits Authorized [id number] 1 1 Reason Comments 6 Month Follow-up Sleep Apnea Reason Comments Follow-up Reason Onset Date Comments Med Refill 05/15/2023 Reason Comments Med Refill Scheduled Active and Recently Administ ered Medications (unrecognized section and content) Continuous Medication Order 03/11/2023 03/12/2023 03/13/2023 sodium chloride 0.9 % infusion 30 mL/hr, IntraVENous, Continuous, Starting on Sat03/13/23 at 0700, Preprocedure 0700 (Canceled Entry - Provider: Automatic Discharge Provider - Comment: Automatically canceled at discontinue of medication order) PRN Medication Order 03/11/2023 03/12/2023 03/13/2023 heparin injection (CANCELED) IntraVENous, As needed, Starting on Sat03/13/23 at 0950, Intraprocedure 0950 (Given - Provid er: James Chappell MD) iopamidol (Isovue-300) 61 % injection (CANCELED) As needed, Starting on Sat03/13/23 at 0959, Intraprocedure 0959 (Given - Provid er: James Chappell MD) lidocaine (Xylocaine) 1 % injection (CANCELED) As needed, Starting on Sat03/13/23 at 0947, Intraprocedure 0947 (Given - Provid er: James Chappell MD) NITROGLYCERIN 1000 MCG / 10 ML SYRINGE (CHARGE ONLY) (CANCELED) As needed, Starting on Sat03/13/23 at 0948, Intraprocedure 0948 (Given - Provid er: James Chappell MD) sodium chloride 0.9 % infusion 5-250 mL/hr, IntraVENous, PRN, if patient receiving piggyback infusions and maintenance fluids are not ordered OR KVO fluids to protect IV site / prevent frequent line interruptions / long duration, Starting on Sat03/13/23 at 0655, Preprocedure, For piggyback infusion, administer at same rate as piggyback for a total of 25 mL. Enter 25 mL into dose field and piggyback rate into rate field of order. If piggyback is infusing at a rate less than 100 mL/hr, enter 25 mL into dose field and 100 mL/hr into rate field of order. For KVO fluids, enter rate of 20 mL/hr or less into rate field of order. sodium chloride 0.9% (NS) flush 5-40 mL 5-40 mL, IntraVENous, PRN, line care, After every IV line use, Starting on Sat03/13/23 at 0655, Preprocedure, For Line Patency: Peripheral IV = 5 mL; Midline or Central Line = 10 mL/lumen. If following IV push medication, administer flush at same rate as the IV push. Flush volume is determined by type of infusion therapy being given. For non-viscous solutions use: Peripheral IV = 5 mL Midline or Central Line = 10 mL/lumen For viscous solutions (i.e. blood components, parenteral nutrition, contrast media, or after obtaining blood sample) use: Peripheral IV = 10 mL Midline or Central Line = 20 mL/lumen verapamil (Isoptin) injection (CANCELED) As needed, Starting on Sat03/13/23 at 0948, Intraprocedure 0948 (Given - Provid er: James Chappell MD) FOR RECORDS PERTAINING TO PATIENTS WHO ARE OR HAVE BEEN ENROLLED IN A CHEMICAL DEPENDENCY/SUBSTANCEABUSE PROGRAM, SOME INFORMATION MAY BE OMITTED. This clinical summary was aggregated from multiple sources. Caution should be exercised in using it in the provision of clinical care. This summary normalizes information from multiple sources, and as a consequence, information in this document may materially change the coding, format and clinical context of patient data. In addition, data may be omitted in some cases. CLINICAL DECISIONS SHOULD BE BASED ON THE PRIMARY CLINICAL RECORDS. [employer] provides no warranty or guarantee of the accuracy or completeness of information in this document.
[2023-10-13 01:00] VITALS: BP 139/69; PULSE 54; RESP 15; O2SAT 95
[2023-10-13 01:37] LABS: Reflex Troponin-HS? (from REC) Y
[2023-10-13 02:00] VITALS: BP 144/79; PULSE 58; RESP 15; O2SAT 97
[2023-10-13 02:22] LABS: Troponin-I HS 11 pg/mL (3.0-78.0)
== END 2023-10-13 02:45 | disposition home or self-care (01) ==
PROVIDERS: Emergency Provider Emergency Medicine; PCP Family Medicine; Visit Provider Emergency Medicine
DX: R07.89 Other chest pain (principal); I48.91 Unspecified atrial fibrillation; G47.30 Sleep apnea, unspecified; E78.5 Hyperlipidemia, unspecified; K21.9 Gastro-esophageal reflux disease without esophagitis; Z79.899 Other long term (current) drug therapy; Z79.01 Long term (current) use of anticoagulants; Z87.891 Personal history of nicotine dependence
CPT/HCPCS: 71045; 80048; 84484; 85025; 93005; 99285; A4216

== ENCOUNTER → 2024-01-29 | Outpatient (CLI) | payer OTHER, SELFPAY ==
--- NOTE | 2024-01-29 15:10 | MRI_ITS ---
EXAM: MR RIGHT LOWER EXTREMITY WITHOUT AND WITH INTRAVENOUS CONTRAST CLINICAL INDICATION: Lipoma Right thigh -- Lipoma Right thigh with/without contrast, cpt 7372 -- CPT 86727, ICD-10 D48.1 TECHNIQUE: Multiplanar and multisequence MR images of the right lower extremity without and with intravenous contrast. CONTRAST: IV 20ml clariscan COMPARISON: No relevant prior studies available. FINDINGS: BONES/JOINTS: Marrow-containing structures are unremarkable. No fracture. No joint effusion. MUSCLES: Enhancing thin septation identified at the caudal aspect of the intramuscular lipomatous lesion (vastus medialis muscle). The mass measures 12.1 x 5.7 cm. No other significant enhancement seen. Remain muscles and tendons are unremarkable. OTHER SOFT TISSUES: Unremarkable. No solid or cystic mass. OTHER FINDINGS: Neurovascular structures are unremarkable. No other masses or fluid collections. MRI/Lower Ext No Joint W/WO Cont IMPRESSION: Lipomatous lesion with thin enhancing septation at the caudal aspect. However cannot exclude a low-grade liposarcoma. Tissue diagnosis may still be considered given the size of the lesion. Electronically Signed: Ramiro Richards MD at 21:34 EDT ,
[2024-01-29 15:50] LABS: CREATININE FINGERSTICK 1.2 mg/dL (0.70-1.30); EGFR FINGERSTICK > 60.0000 mL/min (>60)
== END | disposition home or self-care (01) ==
PROVIDERS: PCP Family Medicine; Referring Provider Plastic Surgery; Visit Provider Plastic Surgery
DX: D17.23 Benign lipomatous neoplasm of skin and subcutaneous tissue of right leg (principal)
CPT/HCPCS: 73720; A9575

== ENCOUNTER → 2025-01-26 | Outpatient (CLI) | payer OTHER, SELFPAY ==
--- NOTE | 2025-01-26 12:01 | CT_ITS ---
PROCEDURE: ABDOMEN/PELVIS WITHOUT CONT 01/26/2025 REASON FOR EXAM: GROSS HEMATURIA TECHNIQUE: Abdomen and pelvis CT without intravenous contrast. Noncontrast technique limits evaluation of the abdominal and pelvic viscera. Coronal and Sagittal reconstruction series were provided. One or more dose reduction techniques were used (e.g., Automated exposure control, adjustment of the mA and/or kV according to patient size, use of iterative reconstruction technique). PATIENT PREPARATION: Per protocol COMPARISON: None FINDINGS: Lung bases: Unremarkable Liver: Simple cyst in the left hepatic lobe measuring 1.8 cm. Gallbladder: Unremarkable Spleen: Mildly enlarged measuring 15.1 cm in AP diameter. Pancreas: Unremarkable Adrenals: Unremarkable Kidneys: No stone or hydronephrosis. Bladder: Mild circumferential bladder wall thickening Reproductive Organs: Prostatomegaly Bowel: No obstruction or inflammation. Normal appendix. Lymph nodes: No significant lymphadenopathy Vasculature: Minimal aortic atherosclerosis. Peritoneum / Retroperitoneum: Unremarkable Bones: Degenerative changes of the spine. CT/Abdomen/Pelvis without Cont IMPRESSION: 1. No urinary stone. Evaluation for renal neoplasm is limited in the absence of intravenous contrast. 2. Mild circumferential bladder wall thickening could be the result of bladder outlet obstruction due to prostatomegaly, or urinary tract infection. Correlate with urinalysis. 3. Mild splenomegaly. Reading Location: [facility]
== END | disposition home or self-care (01) ==
LOC: CT 11:57
PROVIDERS: PCP Family Medicine
DX: R31.0 Gross hematuria (principal)
CPT/HCPCS: 74176

== ENCOUNTER → 2025-06-22 | Outpatient (CLI) | payer OTHER, SELFPAY ==
[2025-06-22 11:49] LABS: Hematocrit 40.8 % (40-54); Hemoglobin 14.5 g/dL (13.0-16.5); Mean Corp Hgb Conc 35.5 g/dL (32-36); Mean Corpuscular Volume 89.7 fL (80-94); Mean Platelet Vol. 9.7 fl (6.2-12.0); Platelet Count 295 K/mm3 (150-450); RBC Distribution Width CV 11.9 % (11.6-14.6); RBC Distribution Width SD 38.7 fl (35.1-43.9); Red Blood Count 4.55 M/mm3 (4.6-6.2); White Blood Count 7.4 K/mm3 (4.4-11.0)
[2025-06-22 12:35] LABS: Anion Gap 12 (5-15); BUN 19 mg/dL (4-19); BUN/Creat Ratio 28.0 RATIO (10-20); Calcium,Total 9.3 mg/dL (7.6-11.0); Carbon Dioxide 21.7 mmol/L (21.0-32.0); Chloride 105 mmol/L (98-108); Glucose 170 mg/dL (70-99); Potassium 4.2 mmol/L (3.3-5.1)
== END | disposition home or self-care (01) ==
LOC: LAB 10:27
PROVIDERS: PCP Family Medicine; Referring Provider Urology; Visit Provider Urology
DX: Z01.812 Encounter for preprocedural laboratory examination (principal)
CPT/HCPCS: 36415; 80048; 85027

== ENCOUNTER 2025-07-07 07:46 | Observation (INO) | payer OTHER, SELFPAY ==
--- NOTE | 2025-07-05 16:03 | PAT.ANE_ITS ---
Pre-Assessment Diagnosis/Proposed Procedure Planned Operative Procedure(s): Lap Robotic Simple Prostatectomy Anesthesia History Anesthesia History - therapy administrative assistant: Anesthesia History - therapy administrative assistant Hx Hospitalization No 06/25/25 14:13 Any Problems With Anesthesia No 06/25/25 14:13 Cholinesterase deficiency No 06/25/25 14:13 You/Your Family Experience No 06/25/25 14:13 fever (hyperthermia) with Relationship Recent Exposure to Contagious Disease Does patient have nerve No 06/25/25 14:13 stimulator Patient instructed to have device shut off --Does patient have Pacemaker or ICD? When Was Last Pacemaker Check QUESTION #4 FULL TEXT: You/Your Family Experience fever (hyperthermia) with Anesthesia Last Oral Intake Last Oral intake: Last Oral Intake NPO since Meds taken in AM with sips of water? Meds patient instructed to take am of surgery PONV PONV - therapy administrative assistant: PONV - therapy administrative assistant Female No 06/25/25 14:13 HX of Motion Sickness No 06/25/25 14:13 HX of N/V After Surgery No 06/25/25 14:13 Non-Smoker Yes 06/25/25 14:13 Duration of Surgery greater Yes 06/25/25 14:13 than 60 minutes Number of Risk Factors 2 06/25/25 14:13 PONV Score Moderate Risk 06/25/25 14:13 Height & Weight Height & Weight: Anesthesia: Height & Weight Height 5 ft 10.5 in 02/05/24 10:38 Respiratory Assessment Respiratory Assessment - therapy administrative assistant: Respiratory Tract Infection Hx - therapy administrative assistant Hx Respiratory Tract Infection No 06/25/25 14:13 STOP Sleep Apnea STOP Sleep Apnea - therapy administrative assistant: STOP Sleep Apnea - therapy administrative assistant Hx Hypertension Yes: CONTROLLED WITH MEDS 06/25/25 14:13 Hx Sleep Apnea Yes 06/25/25 14:13 CPAP Yes 06/25/25 14:13 BIPAP No 06/25/25 14:13 Do you snore loudly (louder than talking or can be heard Do you often feel tired/ fatigued/ sleepy during daytime? Has anyone observed you stop breathing during sleep? STOP Results Positive 06/25/25 14:13 QUESTION #5 FULL TEXT : Do you snore loudly (louder than talking or can be heard through closed doors)? Tobacco Use History Tobacco Use History - therapy administrative assistant: Tobacco Use History - therapy administrative assistant Tobacco Use Non-smoker 03/01/21 10:00 Smoking Status Former smoker 06/25/25 14:13 Hx Tobacco Use No 06/25/25 14:13 Years Smoking Packs Smoked per Day Smoking Cessation Date was No - quit smoking greater 06/25/25 14:13 within the last 15 years than 15 years ago Hx Smoking Cessation Date 09/23/95 06/25/25 14:13 Hx Smoking Cessation Counseling Hematologic Medial History Hematologic Hx - therapy administrative assistant: Hematologic Medical Hx - trapper bird Hx of Blood Transfusion No 06/25/25 14:13 Hx of Transfusion in last 3 No 06/25/25 14:13 Months Date of Last Transfusion (if within last 3 months) Ever experience any problems No 06/25/25 14:13 with transfusion(s)? Specify any problems Hx of Preganancy in last 3 N/A 06/25/25 14:13 Months Nurse Filling Out Transfusion NBUCHER 06/25/25 14:13 & Questions: Date: 06/25/25 06/25/25 14:13 Time: 14:16 06/25/25 14:13 Patient unable to answer at this time (ie. confused, unrespo /Reproduction History /Reproductive History - therapy administrative assistant: /Reproductive Hx- therapy administrative assistant Hx Now No 06/25/25 14:13 Gestational Age (in weeks): EDC: Hx Hx Para Hx Section SAB No 06/25/25 14:13 COUNT INCLUDES THE [facility] Medical History (Updated 06/25/25 @ 14:28 by Daisy Arevalo) Tinnitus Wears hearing aid Loss of hearing Wears glasses Cancer Arthritis Diabetes History of kidney stones BPH (benign prostatic hyperplasia) Prostate disease High cholesterol Stroke/cerebrovascular accident History of hiatal hernia CPAP (continuous positive airway pressure) dependence Former smoker History of stress test Cardiology follow-up encounter History of atrial fibrillation H/O gastroesophageal reflux (GERD) H/O: osteoarthritis H/O: hypertension Hearing problem of both ears H/O: glaucoma H/O diabetes mellitus H/O cataract H/O squamous cell carcinoma of skin H/O arthritis Seasonal allergies Contact with and (suspected) exposure to other viral communicable diseases Acute sinusitis, unspecified Hypertension A-fib GERD (gastroesophageal reflux disease) Sleep apnea Enlarged prostate Hyperlipidemia Home Medications Medication Instructions Recorded Last Taken Type fluticasone furoate 27.5 2 spray NARES DAILY PRN PRN 12/15/19 Unknown History mcg/actuation nasal Congestion spray,suspension metoprolol succinate 25 mg 50 mg PO DAILY HTN 12/15/19 Unknown History tablet,extended release 24 hr rivaroxaban 20 mg tablet (Xarelto) 20 mg PO DAILY A FI B 03/20/22 Unknown History rosuvastatin 5 mg tablet 20 mg PO DAILY HLD 03/20/22 Unknown History aspirin 81 mg tablet,delayed 81 mg PO DAILY HEART HEAL TH 10/12/23 Unknown History release (Adult Aspirin Regimen) isosorbide mononitrate 60 mg 60 mg PO DAILY HTN Unknown History tablet,extended release 24 hr silodosin 4 mg capsule 4 mg PO QDAY BPH 01/21/24 Un known History albuterol sulfate 90 mcg/actuation 1 puff inhalation Q 6H PRN 06/25/25 Unknown History aerosol inhaler shortness of breath or wheez ing ascorbic acid (vitamin C) 500 mg 500 mg PO DAILY SUPPL EMENT 06/25/25 Unknown History tablet (Vitamin C) cholecalciferol (vitamin D3) 10 20 mcg PO DAILY SUPPLE MENT 06/25/25 Unknown History mcg (400 unit) tablet (Vitamin D3) coenzyme Q10 10 mg capsule (Co 10 mg PO DAILY SUPPLEME NT 06/25/25 Unknown History Q-10) magnesium 200 mg tablet 200 mg PO QODAY SUPPLMENT Unknown History pantoprazole 20 mg tablet,delayed 40 mg PO DAILY GERD 06/25/25 Unknown History release potassium 95 mg tablet 95 mg PO QODAY SUPPLEMENT Unknown History turmeric 400 mg capsule 400 mg PO DAILY SUPPLEMENT 1 Unknown History vitamin B complex 1 cap PO QODAY SUPPLEMENT Unknown History Allergy/AdvReac Type Severity Reaction Status Date / Time atorvastatin calcium (From AdvReac Other Verified 06/25/25 14:04 Lipitor) pravastatin sodium (From AdvReac Other Verified 06/25/25 14:04 Pravachol) Family History (Updated 01/21/24 @ 11:22 by Mesha Montero) Brother Alcoholism defect Arthritis Epilepsy CAD (coronary artery disease) Sister Alcoholism Arthritis Bowel disease CAD (coronary artery disease) Suicide attempt Mother Anemia Arthritis Heart disease Psychiatric care Respiratory disease Father Arthritis Cancer Melanoma Other Diabetes Surgical History (Updated 06/25/25 @ 14:28 by Daisy Arevalo) History of local excision of skin lesion History of surgery on lower extremity H/O eye surgery History of hernia repair History of repair of right hip joint Social History (Updated 01/21/24 @ 11:13 by Mesha Montero) Smoking Status: Former smoker how long ago did patient quit smoking: quit 1995 alcohol intake: never substance use type: does not use additional social history: pt denies vaping, denies marijuana use, denies edibles, Does take aspirin daily, on xarelto Does not take ibuprofen. Audit: Pertinent Findings Pertinent Findings EKG Perinent findings: 03/12/2024. Sinus bradycardia 57 bpm first-degree AV block. Left bundle branch block. Stress test pertinent findings: 07/23/2022. Pharmacologic myocardial perfusion stress test. Negative. EF 52%. Left bundle branch block noted Consult pertinent findings: Cardiology 04/14/2025. [facility] cardiology. Paroxysmal atrial fibrillation. Episodes minimal. Continue Xarelto 20 mg and metoprolol 25. Minimal coronary artery disease. Stable no angina. Recommendation Anesthesia Recommendation Anesthesia recommendation: OPTIMIZED for anesthesia
[2025-07-07] VITALS (18 sets, daily range): BP systolic 113–175; BP diastolic 51–90; PULSE 59–86; RESP 16; TEMP 36.3–37.3; O2SAT 92–98; BMI 31.3
[2025-07-07] MEDS: Lactated Ringers 1,000 ML 15 ML IV (07:03)
--- NOTE | 2025-07-07 07:13 | PCM.PRE.AN2 ---
ASA Classification* ASA Classification ASA Classification: 3 Assessment & Plan Anesthesia* Anesthesia Assessment Anesthesia Assessment: Discussed sedation and/or anesthesia options, risks, benefits, and alternatives with patient/parents/legal guardian/POA. Questions invited. The patient/parents/legal guardian/POA seems to understand and agrees to proceed with anesthesia plan. Reviewed the physical assessment, medical history, allergy history and patient home medications list prior to surgery/procedure/anesthetic and documented any changes. Performed airway and anesthesia risk assessments. Anesthesia Type Anesthesia Type: General History Source History Obtained from:: Patient and Chart Anesthesia Focused Assessment* Temperature: 97.4 F Pulse Rate: 65 Blood Pressure: 145/73 Respiratory Rate: 16 Pulse Ox: 98 Oxygen Delivery Method: Room Air Airway Assessment Mouth opens: >3 cm Mallampati Score: II Teeth Condition: Intact Neck Range of motion (ROM): Full ROM Labs Anesthesia Preop lab: CBC WBC, (4.4-11.0) 7.4 K/mm3 06/22/25, 10:34 RBC, (4.6-6.2) 4.55 M/mm3 L 06/22/25, 10:34 Hgb, (13.0-16.5) 14.5 g/dL 06/22/25, 10:34 Hct, (40-54) 40.8 % 06/22/25, 10:34 Plt Count, (150-450) 295 K/mm3 06/22/25, 10:34 CHEMISTRY Potassium, (3.3-5.1) 4.2 mmol/L 06/22/25, 10:34 Sodium, (133-145) 139 mmol/L 06/22/25, 10:34 Magnesium, (1.8-2.4) 1.8 mg/dL 05/09/12, 01:05 BUN, (4-19) 19 mg/dL 06/22/25, 10:34 Creatinine, (0.70-1.20) 0.67 mg/dL L 06/22/25, 10:34 Glucose, (70-99) 170 mg/dL H 06/22/25, 10:34 TSH, (0.358-3.74) 2.24 uIU/mL 05/09/12, 01:05 COAG Pre-Assessment Diagnosis/Proposed Procedure Planned Operative Procedure(s): Lap Robotic Simple Prostatectomy Anesthesia History Anesthesia History - tray filler: Anesthesia History - tray filler Hx Hospitalization No 06/25/25 14:13 Any Problems With Anesthesia No 06/25/25 14:13 Cholinesterase deficiency No 06/25/25 14:13 You/Your Family Experience No 06/25/25 14:13 fever (hyperthermia) with Relationship Recent Exposure to Contagious No 07/07/25 06:42 Disease Does patient have nerve No 06/25/25 14:13 stimulator Patient instructed to have device shut off --Does patient have Pacemaker No 07/07/25 06:42 or ICD? When Was Last Pacemaker Check QUESTION #4 FULL TEXT: You/Your Family Experience fever (hyperthermia) with Anesthesia Last Oral Intake Last Oral intake: Last Oral Intake NPO since 20:00 07/07/25 06:42 Meds taken in AM with sips of water? Meds patient instructed to take am of surgery PONV PONV - tray filler: PONV - tray filler Female No 06/25/25 14:13 HX of Motion Sickness No 06/25/25 14:13 HX of N/V After Surgery No 06/25/25 14:13 Non-Smoker Yes 06/25/25 14:13 Duration of Surgery greater Yes 06/25/25 14:13 than 60 minutes Number of Risk Factors 2 06/25/25 14:13 PONV Score Moderate Risk 06/25/25 14:13 Height & Weight Height & Weight: Anesthesia: Height & Weight Height 5 ft 10 in 07/07/25 06:42 Weight: 99 kg 07/07/25 06:42 Body Mass Index (BMI) 31.3 07/07/25 06:42 Respiratory Assessment Respiratory Assessment - tray filler: Respiratory Tract Infection Hx - tray filler Hx Respiratory Tract Infection No 06/25/25 14:13 STOP Sleep Apnea STOP Sleep Apnea - tray filler: STOP Sleep Apnea - tray filler Hx Hypertension Yes: CONTROLLED WITH MEDS 06/25/25 14:13 Hx Sleep Apnea Yes 06/25/25 14:13 CPAP Yes 06/25/25 14:13 BIPAP No 06/25/25 14:13 Do you snore loudly (louder than talking or can be heard Do you often feel tired/ fatigued/ sleepy during daytime? Has anyone observed you stop breathing during sleep? STOP Results Positive 06/25/25 14:13 QUESTION #5 FULL TEXT : Do you snore loudly (louder than talking or can be heard through closed doors)? Tobacco Use History Tobacco Use History - tray filler: Tobacco Use History - tray filler Tobacco Use Non-smoker 03/01/21 10:00 Smoking Status Former smoker 06/25/25 14:13 Hx Tobacco Use No 06/25/25 14:13 Years Smoking Packs Smoked per Day Smoking Cessation Date was No - quit smoking greater 06/25/25 14:13 within the last 15 years than 15 years ago Hx Smoking Cessation Date 09/23/95 06/25/25 14:13 Hx Smoking Cessation Counseling Hematologic Medial History Hematologic Hx - tray filler: Hematologic Medical Hx - chucking machine set up operator tool Hx of Blood Transfusion No 06/25/25 14:13 Hx of Transfusion in last 3 No 06/25/25 14:13 Months Date of Last Transfusion (if within last 3 months) Ever experience any problems No 06/25/25 14:13 with transfusion(s)? Specify any problems Hx of Preganancy in last 3 N/A 06/25/25 14:13 Months Nurse Filling Out Transfusion [facility]BU[facility]ER 06/25/25 14:13 & Questions: Date: 06/25/25 06/25/25 14:13 Time: 14:16 06/25/25 14:13 Patient unable to answer at this time (ie. confused, unrespo /Reproduction History /Reproductive History - tray filler: /Reproductive Hx- tray filler Hx Now No 06/25/25 14:13 Gestational Age (in weeks): EDC: Hx Hx Para Hx Section SAB No 06/25/25 14:13 Active Medications Active Medications: Current Medications Generic Name Dose Route Start Last Admin Trade Name Freq PRN Reason Stop Dose Admin Cefazolin Sodium 2 gm/ Sodium 110 mls @ 200 mls/hr 07/07/25 07:30 07/07/25 07:09 Chloride IV 07/07/25 08:02 Not Given INTRAOP ONE Lactated Ringer's 1,000 mls @ 15 mls/hr 07/07/25 06:00 07/07/25 07:03 IV 15 mls/hr .Q48H JENARO Administration PFSH Medical History Tinnitus Wears hearing aid Loss of hearing Wears glasses Cancer Arthritis Diabetes History of kidney stones BPH (benign prostatic hyperplasia) Prostate disease High cholesterol Stroke/cerebrovascular accident History of hiatal hernia CPAP (continuous positive airway pressure) dependence Former smoker History of stress test Cardiology follow-up encounter History of atrial fibrillation H/O gastroesophageal reflux (GERD) H/O: osteoarthritis H/O: hypertension Hearing problem of both ears H/O: glaucoma H/O diabetes mellitus H/O cataract H/O squamous cell carcinoma of skin H/O arthritis Seasonal allergies Contact with and (suspected) exposure to other viral communicable diseases Acute sinusitis, unspecified Hypertension A-fib GERD (gastroesophageal reflux disease) Sleep apnea Enlarged prostate Hyperlipidemia Home Medications Medication Instructions Recorded Last Taken Type fluticasone furoate 27.5 2 spray NARES DAILY PRN PRN 12/15/19 07/06/25 History mcg/actuation nasal Congestion spray,suspension metoprolol succinate 25 mg 50 mg PO DAILY HTN 12/15/19 07/06/25 History tablet,extended release 24 hr rivaroxaban 20 mg tablet (Xarelto) 20 mg PO DAILY A FIB 03/20/22 07/02/25 History rosuvastatin 5 mg tablet 20 mg PO DAILY HLD 03/20/22 07/06/25 History aspirin 81 mg tablet,delayed 81 mg PO DAILY HEART HEALTH 10/12/23 06/30/25 History release (Adult Aspirin Regimen) isosorbide mononitrate 60 mg 60 mg PO DAILY HTN 10/12/23 07/06/25 History tablet,extended release 24 hr silodosin 4 mg capsule 4 mg PO QDAY BPH 01/21/24 07/06/25 History albuterol sulfate 90 mcg/actuation 1 puff inhalation Q6H PRN 06/25/25 Unknown History aerosol inhaler shortness of breath or wheezing ascorbic acid (vitamin C) 500 mg 500 mg PO DAILY SUPPLEMENT 06/25/25 07/06/25 History tablet (Vitamin C) cholecalciferol (vitamin D3) 10 20 mcg PO DAILY SUPPLEMENT 06/25/25 07/06/25 History mcg (400 unit) tablet (Vitamin D3) coenzyme Q10 10 mg capsule (Co 10 mg PO DAILY SUPPLEMENT 06/25/25 07/06/25 History Q-10) magnesium 200 mg tablet 200 mg PO QODAY SUPPLMENT 06/25/25 06/30/25 History pantoprazole 20 mg tablet,delayed 40 mg PO DAILY GERD 06/25/25 07/07/25 05:00 History release potassium 95 mg tablet 95 mg PO QODAY SUPPLEMENT 06/25/25 06/30/25 History turmeric 400 mg capsule 400 mg PO DAILY SUPPLEMENT 06/25/25 06/30/25 History vitamin B complex 1 cap PO QODAY SUPPLEMENT 06/25/25 07/06/25 History Allergy/AdvReac Type Severity Reaction Status Date / Time atorvastatin calcium (From AdvReac Other Verified 07/07/25 06:35 Lipitor) pravastatin sodium (From AdvReac Other Verified 07/07/25 06:35 Pravachol) Family History Brother Alcoholism defect Arthritis Epilepsy CAD (coronary artery disease) Sister Alcoholism Arthritis Bowel disease CAD (coronary artery disease) Suicide attempt Mother Anemia Arthritis Heart disease Psychiatric care Respiratory disease Father Arthritis Cancer Melanoma Other Diabetes Surgical History History of local excision of skin lesion History of surgery on lower extremity H/O eye surgery History of hernia repair History of repair of right hip joint Social History Smoking Status: Former smoker how long ago did patient quit smoking: quit 1995 alcohol intake: never substance use type: does not use additional social history: pt denies vaping, denies marijuana use, denies edibles, Does take aspirin daily, on xarelto Does not take ibuprofen. Review of Systems (Anesthesia) ROS Narrative System reviewed and no additional complaints, except as documented.
--- NOTE | 2025-07-07 07:30 | PROST_PTH ---
PATIENT: NORMAN GONG LOC: [facility] U#:[id number] AGE/SX: 70/M [place] [facility] [place] [facility] [place]07/[address]: Dr. Darrick Vann MD : 1955 BED: 1 DIS: 07/08/2025 SPEC #: [id number] RECD: 07/07/25 11:38 STATUS: ROBB ALEXANDER #: [id number] LANCE: 07/07/25 07:[address]: Darrick Vann DEPT: SURGICAL PATHOLOGY RECD BY: Saeid Miranda ENTERED: 07/07/25 15:09 SP TYPE: PROSTATE OTHR DR: Dr. Basil Arellano, DO Tissues: A - Prostate, NOS Procedures: Surgery Specimen Level V HEADER OPERATION: Laparoscopic robotic simple prostatectomy PRE-OP DIAGNOSIS: Benign prostatic hyperplasia TISSUE SUBMITTED: A- Prostate MICROSCOPIC DIAGNOSIS A. Prostate, laparoscopic robotic simple prostatectomy: * Benign prostatic tissue with stromal and glandular hyperplasia. MICROSCOPIC DESCRIPTION Slides are reviewed. GROSS DESCRIPTION A. Received in formalin labeled with the patient's name and date of . Designated as "prostate" is a cárdenas-pink, firm and disrupted simple prostatectomy specimen, devoid of orientation and without attached adnexa; weight of 38.8 g and aggregate dimensions of 6.3 x 5.1 x 3.3 cm. The intact external surfaces (inked black) are shaggy and focally cauterized with loosely adherent blood clot. Sectioning reveals pale cárdenas-yellow to white, fibrotic and nodular cut surfaces devoid of identifiable mass lesion. Hand Cloth Examiner sections are submitted in 10 cassettes. [place] 07/07/2025 CPT:86973
[2025-07-07] MEDS: Cefazolin 1 GM/5 ML Vial 2 GM IV (07:37)
[2025-07-07] MEDS: Lidocaine 1% (5 ml sdv) 5 ML Vial IV (07:41)
--- NOTE | 2025-07-07 09:44 | PCM.DC ---
Discharge Instructions DC O2, CPAP, BIPAP needs Home O2 Discharge instructions: No Dressing / Incision Discharge Activity: Return to Normal Activity and May Not Drive (while taking narcotic pain medications.) Dressing / Incision Call your doctor if you observe: Fever of 101 or Higher Catheter: Norie[place] to leg bag and Nor[place]ga to large bag Drain: [place] Follow Up Care Please Follow Up With: Darrick Vann MD When: Call [phone] for an appointment, next to d/c noriega Test Results: Test results from this visit will be discussed in further detail at your follow-up appointment, if applicable. Discharge Plan Admission Primary Reason for Your Visit: simple prostatectomy Attending Provider: Darrick Vann Primary Care Provider: Basil Arellano Instructions Print Language: Bermudian Discharge Orders/Prescriptions Prescriptions: New ciprofloxacin HCl [Cipro] 500 mg tablet 500 mg PO BID Qty: 14 0RF docusate sodium [Colace] 100 mg capsule 100 mg PO BID Qty: 20 0RF oxycodone 5 mg tablet 5 mg PO Q6H PRN (Reason: pain) 7 Days Qty: 14 0RF Continued rosuvastatin 5 mg tablet 20 mg PO DAILY metoprolol succinate 25 MG tablet extended release 24 hr 50 mg PO DAILY fluticasone furoate 5.9 ML spray,suspension 2 spray NARES DAILY PRN PRN (Reason: Congestion) isosorbide mononitrate 60 mg tablet extended release 24 hr 60 mg PO DAILY pantoprazole 20 mg tablet,delayed release (DR/EC) 40 mg PO DAILY ascorbic acid (vitamin C) [Vitamin C] 500 mg tablet 500 mg PO DAILY turmeric 400 mg capsule 400 mg PO DAILY coenzyme Q10 [Co Q-10] 10 mg capsule 10 mg PO DAILY magnesium 200 mg tablet 200 mg PO QODAY potassium 95 mg tablet 95 mg PO QODAY vitamin B complex Capsule 1 cap PO QODAY cholecalciferol (vitamin D3) [Vitamin D3] 10 mcg (400 unit) tablet 20 mcg PO DAILY albuterol sulfate 90 mcg/actuation HFA aerosol inhaler 1 puff inhalation Q6H PRN (Reason: shortness of breath or wheezing) Rx Instructions: NEEDED for wheezing. Held Xarelto 20 mg tablet 20 mg PO DAILY Hold Instructions: Resume on 07/19/25. aspirin [Adult Aspirin Regimen] 81 mg tablet,delayed release (DR/EC) 81 mg PO DAILY Hold Instructions: Resume on 07/19/25. Discontinued silodosin 4 mg capsule 4 mg PO QDAY Referrals / Follow Up: Darrick Vann MD [Med Staff - Active Staff, Urology] Basil Arellano DO [Primary Care Provider, Medical] Disposition Disposition (needs filled in before D/C Order can be placed): Home, Self Care
--- NOTE | 2025-07-07 09:44 | PCM.OPRPT ---
Operative Report (Standard) Operative Information Date of Procedure: 07/07/25 Pre-Operative Diagnosis: BPH with obstruction Post-Operative Diagnosis: Same Surgery/Procedure Performed: Simple robotic prostatectomy account financial manager: Yes Cable Television Line Technician: Michaela Casillas Tasks completed by office support assistant: Opening, Closing, Opening & closing, Harvesting grafts, Dissecting tissue, Removing tissue, Implanting device, Altering tissue, Insert Trochanter, Hemostasis: Clamp, Hemostasis: Tie, Hemostasis: Electrocautery, Trocar, Retracting and Other Type of Anesthesia: General RN Documented Start/Stop Times: Operation Date: 07/07/25 07:30 Case Time Into Pre-Op 07/07/25 05:52 Out of Pre-Op 07/07/25 07:31 Anesthesia Start 07/07/25 07:35 Into Room 07/07/25 07:35 Procedure Start 07/07/25 08:03 Procedure Start Time: 07:30 Procedure Stop Time: 09:45 Select all DRAINS/GRAFTS/IMPLANTS that apply: Drains Drain details: [address] Estimated Blood Loss: 200cc Specimen collected: Yes Description of specimen(s) removed: prostate adenoma Description of surgery: Patient presents for a simple robotic prostatectomy. He understands that organ to do enucleation of the obstructing adenoma and then after his surgery he will need a catheter to allow this to heal. He understands is no guarantees that after the surgery he will be able to urinate spontaneously and may need to learn how to do self intermittent catheterization. We also talked about the risk of surgery which involves risk of bleeding and infection scar tissue formation bladder neck contracture. Patient was taken back to the operating room at this induction of anesthesia he underwent and intubation and was placed supine on the table. The abdomen was shaved prepped and draped in usual sterile fashion. A Moreno catheter was placed into the penis. I then infiltrated the skin above the umbilicus with lidocaine and made a small 5 mm incision in the skin. I then advanced a Veress needle into the peritoneal cavity and inflated the peritoneal cavity with CO2 gas. Once the pressure was at 15 mm and a nice distention of the abdomen then the camera trocar was put into the abdomen. We then looked in with the 0 degree lens and we placed a right arm trocar and left arm trocar and then an air seal suction port high up in the abdomen to allow the assistant manager of operations to use this for suction. The robot was then docked and then we proceeded with the dissection. The colon was mobilized from the flexure of the colon on the patient's left side once this was freed up then the bladder was distended with 300 cc of sterile normal saline. I then made an incision in the bladder in the midline once we got inside the bladder that drained out all the saline we then used 2 Ajay needles to retract the bladder laterally. Once the bladder was retracted in a clamshell fashion laterally then we got inside the bladder inspected the bladder deflated the balloon left the catheter in place. We then started with scoring the mucosa circumferentially all the way around very large protruding adenomatous prostate. I then dissected between the adenoma and the bladder inferiorly working my way in the avascular enucleation plane between the adenoma and the prostate capsule, pseudocapsule all the way inferiorly I then started working my way laterally up on the right side of the prostate until I got to the anterior part freeing up the adenomatous tissue from the prostate and the anterior tissue and cutting through the bladder muscle and mucosa. We then worked our way laterally on the left side of the adenomatous tissue freeing up the adenoma from the prostate and the bladder muscle and mucosa I then came on top of the adenoma and was able to retract the adenoma out and then split the adenoma in half and identified the catheter and then identified the urethral strip the urethral strip was then carefully transected and then the right adenomatous tissue was removed and then the left adenomatous tissue was removed all intact and all this was placed in Endo Catch bag. Then we cauterized the prostate fossa extensively to control hemostasis Floseal was placed in the prostatic fossa. I then used a 3 oh V-Loc stitch to bring down the mucosa and advance it down towards the urethra circumferentially to advance the mucosa down to the urethral stump. We then placed a Moreno catheter, 20 Congolese into the bladder with no continuous irrigation. Irrigate out the bladder irrigate all the clots out we then closed the bladder with 2 layers using 2 oh V-Loc stitch and then a 4-0 Vicryl stitch. Both the Ajay needles were removed that were retracting the bladder. We then undocked the robot we extracted the prostate adenoma through the umbilicus port we closed the air seal port with 1012 stitch and then we closed all the other ports with subcuticular stitches once the prostate was extracted to the camera port and we reapproximated the fascia and the camera port with a 0 Vicryl [id number] fashion stitch. Minimal blood loss during the case catheter was irrigated and draining well patient anesthetic was reversed and he was taken back to the PACU in good condition. The role of the [employer] financial[employer] consultant DOT COMPLIANCE MANAGER, assisted with myself during the entire procedure, the DOT COMPLIANCE MANAGER assisted by passing instruments through the air seal port, passing suture, needles, sponges during the surgery. The RFA also assisted with providing some suction using the suction irrigation and some irrigation during the surgery. Also the assistant manager of operations provided some traction minorly during the dissection of the prostate and the seminal vesicles. The RFA also helped me extract the prostate at the end of the case and helped close the fascia, and the assistant manager of operations also helped close the skin incisions with subcuticular stitches. The assistant manager of operations was monitored closely and under my direct supervision the entire case. Surgical Findings: complete removal of obstruction adenoma Complications Complications: No Admit VTE Documentation VTE Present on Admission: No VTE Mechan Device Prophylaxis: SCD's VTE Pharm Prophylaxis ordered?: No
[2025-07-07] MEDS: fentaNYL 100 MCG/2 ML Ampul 200 MCG IV (09:54)
--- NOTE | 2025-07-07 10:08 | PCM.POST.ANE ---
Anesthesia: Postop Eval I Current Vital Signs Temperature: 99.1 F Pulse Rate: 73 Blood Pressure: 161/75 Respiratory Rate: 16 Pulse Ox: 94 Oxygen Delivery Method: Room Air Assessment Airway patent: Yes Spontaneous unlabored respirations: Yes Mental status: Awake and Calm nausea: No Vomiting: No Anesthesia Complication: No Fluid Hydration Crystalloid volume administer (ml): 1,300 Total IV fluid infused: 1,300 Progress Note Anesthesia document: Postop Eval 1 completed: Yes
--- NOTE | 2025-07-07 12:14 | POSTOPAN2_ITS ---
Anesthesia Postop Eval I Sum Postop Eval Completion status Anesthesia document: Postop Eval 1 completed: Yes Anesthesia Postop Eval I Summary Anesthesia Postop Eval I Summary: Anesthesia Postop Eval I: Assessment Summary Airway patent Yes 07/07/25 10:08 QUALITY MANAGEMENT NURSE.SHOF Spontaneous unlabored Yes 07/07/25 10:08 QUALITY MANAGEMENT NURSE.SHOF respirations Mental status Awake,Calm 07/07/25 10:08 QUALITY MANAGEMENT NURSE.SHOF nausea No 07/07/25 10:08 QUALITY MANAGEMENT NURSE.SHOF Vomiting No 07/07/25 10:08 QUALITY MANAGEMENT NURSE.SHOF Anesthesia Postop Eval I: Fluid Summary Crystalloid volume administer 1,300 07/07/25 10:08 QUALITY MANAGEMENT NURSE.SHOF (ml) Colloids volume administered ( ml) Blood Product volume administered (ml) Total IV fluid infused 1,300 07/07/25 10:08 QUALITY MANAGEMENT NURSE.SHOF Anesthesia Postop Eval I: Summary Notes Anesthesia Complication No 07/07/25 10:08 QUALITY MANAGEMENT NURSE.SHOF Anesthesia Complication Comment: Post-operative progress note Anesthesia: Postop Eval II Evaluation Mental status: Awake and Calm Pain Level: 1 nausea: No Vomiting: No Complications Anesthesia Complication: No
--- NOTE | 2025-07-07 12:14 | PCM.POSTANE2 ---
Anesthesia Postop Eval I Sum Postop Eval Completion status Anesthesia document: Postop Eval 1 completed: Yes Anesthesia Postop Eval I Summary Anesthesia Postop Eval I Summary: Anesthesia Postop Eval I: Assessment Summary Airway patent Yes 07/07/25 10:08 COMPACTING MACHINE OPERATOR/TENDER.SHOF Spontaneous unlabored Yes 07/07/25 10:08 COMPACTING MACHINE OPERATOR/TENDER.SHOF respirations Mental status Awake,Calm 07/07/25 10:08 COMPACTING MACHINE OPERATOR/TENDER.SHOF nausea No 07/07/25 10:08 COMPACTING MACHINE OPERATOR/TENDER.SHOF Vomiting No 07/07/25 10:08 COMPACTING MACHINE OPERATOR/TENDER.SHOF Anesthesia Postop Eval I: Fluid Summary Crystalloid volume administer 1,300 07/07/25 10:08 COMPACTING MACHINE OPERATOR/TENDER.SHOF (ml) Colloids volume administered ( ml) Blood Product volume administered (ml) Total IV fluid infused 1,300 07/07/25 10:08 COMPACTING MACHINE OPERATOR/TENDER.SHOF Anesthesia Postop Eval I: Summary Notes Anesthesia Complication No 07/07/25 10:08 COMPACTING MACHINE OPERATOR/TENDER.SHOF Anesthesia Complication Comment: Post-operative progress note Anesthesia: Postop Eval II Evaluation Mental status: Awake and Calm Pain Level: 1 nausea: No Vomiting: No Complications Anesthesia Complication: No
[2025-07-07] MEDS: 0.9% Saline Lock 10 ML Syringe IV ×2 (13:20→21:44)
[2025-07-07] MEDS: 0.9% Normal Saline (1000mL) 1,000 ML 125 ML IV ×2 (13:20→21:26)
[2025-07-07] MEDS: Metoprolol(XL)Succ 50 MG Tablet PO (13:35)
[2025-07-07] MEDS: Tolterodine Tartrate 4 MG CAP.SA PO (21:44)
[2025-07-08 02:52] VITALS: BP 114/61; PULSE 61; RESP 16; TEMP 36.7; O2SAT 98
[2025-07-08] MEDS: 0.9% Normal Saline (1000mL) 1,000 ML 125 ML IV (05:30)
[2025-07-08 07:36] VITALS: O2SAT 95
[2025-07-08 08:04] VITALS: BP 126/65; PULSE 63; RESP 16; TEMP 36.4; O2SAT 97
[2025-07-08 11:12] VITALS: BP 126/65; PULSE 63
[2025-07-08] MEDS: Metoprolol(XL)Succ 50 MG Tablet PO (11:12)
--- NOTE | 2025-07-08 12:37 | PHA.DC.MR.R ---
Pharmacy [place] Med Reconciliation Pharmacy Service has performed discharge medication reconciliation for this patient. The patient's discharge medication list was reviewed for discrepancies and discrepancies were resolved. Medications at Discharge Home Medications fluticasone furoate 27.5 mcg/actuation nasal spray,suspension 2 spray NARES DAILY PRN PRN Congestion 12/15/19 metoprolol succinate 25 mg tablet,extended release 24 hr 50 mg PO DAILY HTN 12/15/19 rivaroxaban 20 mg tablet (Xarelto) 20 mg PO DAILY A FIB 03/20/22 Held on 07/07/25. Instructions: Resume on 07/19/25. rosuvastatin 5 mg tablet 20 mg PO DAILY HLD 03/20/22 aspirin 81 mg tablet,delayed release (Adult Aspirin Regimen) 81 mg PO DAILY HEART HEALTH 10/12/23 Held on 07/07/25. Instructions: Resume on 07/19/25. isosorbide mononitrate 60 mg tablet,extended release 24 hr 60 mg PO DAILY HTN 10/12/23 albuterol sulfate 90 mcg/actuation aerosol inhaler 1 puff inhalation Q6H PRN shortness of breath or wheezing 06/25/25 ascorbic acid (vitamin C) 500 mg tablet (Vitamin C) 500 mg PO DAILY SUPPLEMENT 06/25/25 cholecalciferol (vitamin D3) 10 mcg (400 unit) tablet (Vitamin D3) 20 mcg PO DAILY SUPPLEMENT 06/25/25 coenzyme Q10 10 mg capsule (Co Q-10) 10 mg PO DAILY SUPPLEMENT 06/25/25 magnesium 200 mg tablet 200 mg PO QODAY SUPPLMENT 06/25/25 pantoprazole 20 mg tablet,delayed release 40 mg PO DAILY GERD 06/25/25 potassium 95 mg tablet 95 mg PO QODAY SUPPLEMENT 06/25/25 turmeric 400 mg capsule 400 mg PO DAILY SUPPLEMENT 06/25/25 vitamin B complex 1 cap PO QODAY SUPPLEMENT 06/25/25 ciprofloxacin HCl 500 mg tablet (Cipro) 500 mg PO BID #14 tabs 07/07/25 docusate sodium 100 mg capsule (Colace) 100 mg PO BID #20 caps 07/07/25 oxycodone 5 mg tablet 5 mg PO Q6H PRN pain 7 days #14 tabs 07/07/25
== END 2025-07-08 12:06 | disposition home or self-care (01) ==
LOC: ACINP 11:54 → SDC 12:01 → MS3 12:01
PROVIDERS: Anesthesiology; Admitting Provider Urology; PCP Family Medicine; Referring Provider Urology; Visit Provider Urology
PROC: 0VT04ZZ Resection of Prostate, Percutaneous Endoscopic Approach (ICD-10-PCS; CPT 55867; principal; 2025-07-07 07:10)
DX: N40.1 Benign prostatic hyperplasia with lower urinary tract symptoms (principal); I48.91 Unspecified atrial fibrillation; E11.9 Type 2 diabetes mellitus without complications; N13.8 Other obstructive and reflux uropathy; R33.8 Other retention of urine; R39.14 Feeling of incomplete bladder emptying; R39.12 Poor urinary stream; R31.0 Gross hematuria; Z79.899 Other long term (current) drug therapy; Z79.82 Long term (current) use of aspirin; Z79.01 Long term (current) use of anticoagulants; E78.00 Pure hypercholesterolemia, unspecified; Z87.891 Personal history of nicotine dependence; I10 Essential (primary) hypertension; K21.9 Gastro-esophageal reflux disease without esophagitis; M19.90 Unspecified osteoarthritis, unspecified site
CPT/HCPCS: 55867; 00840; 36415; 82962; 83036; 88307; 88309; 94668; 96361; 96365; 96366; 96375; 96376; 99221; A4216; G0378; J0744; J2405

== ENCOUNTER → 2025-07-15 | Outpatient (CLI) | payer OTHER, SELFPAY | END | disposition home or self-care (01) | LOC: LABSPEC 14:44 | PROVIDERS: PCP Family Medicine; Referring Provider Urology; Visit Provider Urology | DX: N39.0 Urinary tract infection, site not specified (principal) | CPT/HCPCS: 87086; 87088 ==

== ENCOUNTER → 2025-08-13 | Outpatient (CLI) | payer OTHER, SELFPAY ==
--- NOTE | 2025-08-13 10:11 | RAD_ITS ---
PROCEDURE: CHEST PA AND LATERAL 08/13/2025 REASON FOR EXAM: COUGH AND CONGESTION X 1 MONTH TECHNIQUE: Procedure Code: RADCXR Modality: DX Procedure: CHEST PA AND LATERAL COMPARISON: October 12, 2023. FINDINGS: Hardware: The electrodes are seen. Heart: The heart is nonenlarged Mediastinum: The mediastinal contour is unremarkable. Lungs: Hyperinflation. Scattered calcified granuloma. No seen. Bones: Mild degree of degenerative changes and osteopenia of the thoracic vertebrae. RAD/Chest PA and Lateral IMPRESSION: Hyperinflation. Scattered calcified granulomas. Reading Location: [id number]
== END | disposition home or self-care (01) ==
LOC: MTRAD 10:11
PROVIDERS: PCP Family Medicine; Referring Provider Physician Assistant Surgical; Visit Provider Physician Assistant Surgical
DX: J20.9 Acute bronchitis, unspecified (principal)
CPT/HCPCS: 71046